=== PATIENT | male | born 1930 | race Caucasian/White ===

== ENCOUNTER 2017-01-06 10:24 | Inpatient (IN) ==
[2017-01-06] MEDS ORDERED: ASPIRIN 81 MG TAB.CHEW CHEWED ONE (10:45)
[2017-01-06] MEDS ORDERED: ASPIRIN 81 MG TAB.CHEW ONE (10:49)
[2017-01-06] MEDS ORDERED: IPRATROPIUM/ALBUTEROL 3 ML AMPUL.NEB NEB ONE (10:52)
[2017-01-06] MEDS ORDERED: CAPTOPRIL 25 MG TABLET PO ONE (10:55)
[2017-01-06] MEDS ORDERED: MAGNESIUM SULFATE 2 GM/50 ML BAG IV ONE (11:04)
[2017-01-06] MEDS ORDERED: methylPREDNISolone SOD SUCC 125 MG/2 ML VIAL IV ONE (11:04)
[2017-01-06] MEDS ORDERED: FUROSEMIDE 40 MG/4 ML VIAL IV ONE (11:04)
[2017-01-06] MEDS ORDERED: ALBUTEROL SULFATE 5 MG/ML NEB SOLUTION BOTTLE NEB ONE (11:06)
[2017-01-06 11:15] LABS: Basophils # (Auto) 0 K/mcL (0.0-0.3); Basophils % (Auto) 0.5 % (0.0-2.0); Eosinophils # (Auto) 0.2 K/mcL (0.0-0.7); Eosinophils % (Auto) 3.6 % (0.0-7.0); Granulocytes % (Auto) 57.5 % (38.0-78.0); Lymphocytes # (Auto) 1.6 K/mcL (1.5-4.8); Lymphocytes % (Auto) 30.1 % (15.5-49.0); Mean Corpuscular HGB Conc 34.7 g/dL (31.0-36.0); Mean Corpuscular Hemoglobin 29.9 pg (26.0-34.0); Monocytes # (Auto) 0.5 K/mcL (0.1-0.9); Monocytes % (Auto) 8.3 % (1.0-12.0); Platelet Count 264 K/mcL (140-440); Red Cell Distribution Width 13.9 % (11.5-14.5)
--- NOTE | 2017-01-06 11:38 | XRay Report ---
CLINICAL INFORMATION: Chest pain COMPARISON: 12/02/[address] from 07/30/2016 FINDINGS: Marked cardiomegaly is unchanged. Dual-chamber pacemaker leads in stable satisfactory position. Mediastinum and pulmonary vessels are normal. Marked chronic elevation right diaphragm with compressive atelectasis in the underlying right middle and lower lobes seen - as before. Small right pleural effusion with loculated fluid trapped in the superior right major fissure demonstrates long-term stability. The left lung is well expanded and clear IMPRESSION: Marked chronic elevation right diaphragm with atelectasis in the overlying right and middle lower lobes. Small right pleural effusion with loculated fluid trapped in the major fissure - stable Interpreted and Authenticated by: Daniel Selby 01/06/17
[2017-01-06 11:39] LABS: ALT/SGPT 13 U/l (0-40); Albumin 4.2 gm/dL (3.2-5.2); Albumin/Globulin Ratio 1.4 (1.0-2.3); Alkaline Phosphatase 81 U/L (39-117); Blood Urea Nitrogen 22 mg/dl (8-23); Creatine Kinase 148 IU/L (24-195); Creatine Kinase MB 3.2 ng/ml (0-4.9); Myoglobin 168 ng/ml (28-72)
--- NOTE | 2017-01-06 12:41 | Emergency Department Note ---
General Adult HPI - General Chief complaint: Blood Pressure Problem Stated complaint: SOB, Dizzy, high BP this morning Time Seen by Provider: 01/06/17 10:47 Source: patient Mode of arrival: ambulatory Limitations: no limitations - History of Present Illness HPI Narrative: 86-year-old male who complains of dizziness and discoordination, increased blood pressure and shortness of breath this morning. He did have some chest pressure on and off again but no true chest pain. No fever chills nausea vomiting diarrhea.. He did use a single DuoNeb at home earlier today without significant effect. He is not on home oxygen but does have a history of COPD as well as a chronic small right pleural effusion - Related Data Home Medications Medication Instructions Recorded Confirmed Metoprolol Succinate [Toprol Xl] 25 mg PO DAILY 02/05/15 10/17/15 Ondansetron [Zofran Odt] 4 mg PO Q6HP PRN 08/05/15 10/17/15 PARoxetine [Paxil] 20 mg PO DAILY 08/05/15 10/17/15 Furosemide [Lasix] 60 mg PO DAILY 10/17/15 10/17/15 Potassium Chloride [Klor-Con M10] 10 meq PO DAILY 10/17/15 10/17/15 Warfarin [Coumadin] 5 mg PO DAILY 08/13/16 08/13/16 Previous Rx's Medication Instructions Recorded Aspirin [Ecotrin] 325 mg PO DAILY #30 tab.ec 10/21/15 Atorvastatin [Lipitor] 40 mg PO HS #30 tablet 10/21/15 Docusate Sodium [Colace] 100 mg PO BID #0 capsule 10/21/15 Doxycycline Hyclate 200 mg PO DAILY #10 tablet. 05/21/16 Albuterol Sulfate [Ventolin] 2 puff INH Q4-6HP PRN #1 inhaler 08/13/16 Azithromycin [Zithromax] 250 mg PO DAILY #4 tablet 08/13/16 Doxycycline Hyclate [Vibramycin] 100 mg PO BID #20 capsule 12/02/16 Allergies Allergy/AdvReac Type Severity Reaction Status Date / Time Penicillins AdvReac Severe ANAPHYLAXIS Verified 12/02/16 10:46 morphine [MORPHINE] AdvReac Intermediate "BEEN Verified 12/02/16 10:46 ADDICTED 2X" Review of Systems All systems ED: reviewed and negative except as stated. Past Medical History - Past Medical History Attestation: Yes: The following information was validated with the patient. Medical history: Reports: arthritis, atrial fibrillation (On warfarin), cancer, COPD, CVA, glaucoma, hyperlipidemia, hypertension, kidney stones, TIA Surgical history ED: Reports: appendectomy, cataract, cholecystectomy, herniorrhaphy, knee replacement, orthopedic, other (lt shoulder 09/15/14 for failed replacement), pacemaker/AICD Psychiatric history: Reports: anxiety, depression, PTSD, prior suicide attempt - Social History smoking status: Former smoker Alcohol use: Reports: None (Former) Drug use: Reports: unknown Physical Exam Mild respiratory distress. Normocephalic atraumatic but face is flushed after breathing treatment. Conjunctive are clear sclerae white and nonicteric. No nasal discharge or congestion. Oropharynx is pink and moist. Neck is supple without lymphadenopathy or thyromegaly. I do not hear carotid bruit. Lungs are mostly clear to auscultation bilaterally but he does have significant end expiratory wheeze and tight cough with inspiration. Excursion is symmetrical. Abdomen soft nontender nondistended. No peritoneal signs or guarding. +1 pedal edema to mid calf. +2 radial pulse. No dysarthria ataxia, is alert oriented able answer questions appropriately and give me a good history and review of systems. - General Limitations: no limitations Course Vital Signs Temperature 98.3 F 01/06/17 10:26 Pulse Rate 66 01/06/17 10:26 Respiratory Rate 24 H 01/06/17 10:26 Blood Pressure 178/84 01/06/17 10:26 Pulse Oximetry (%) 93 01/06/17 10:26 Temperature 98.3 F 01/06/17 10:26 Pulse Rate 72 01/06/17 11:47 Respiratory Rate 23 H 01/06/17 11:47 Blood Pressure 140/80 01/06/17 11:47 Pulse Oximetry (%) 92 01/06/17 11:47 Medical Decision Making - Lab Data Lab results reviewed: Yes I reviewed the patient's lab results. Result diagrams: 01/06/17 10:51 01/06/17 10:51 Lab Results 01/06/17 01/06/17 01/06/17 Range/Units 10:45 10:51 10:51 WBC 5.5 (4.5-11.0) K/mcL RBC 4.40 L (4.50-5.90) M/mcL Hgb 13.2 L (13.5-16.5) g/dL Hct 37.9 L (41.0-55.0) % MCV 86.0 (80.0-100.0) fL MCH 29.9 (26.0-34.0) pg MCHC 34.7 (31.0-36.0) g/dL RDW 13.9 (11.5-14.5) % Plt Count 264 (140-440) K/mcL MPV 7.1 L (7.4-10.4) fL Gran % 57.5 (38.0-78.0) % Lymph % (Auto) 30.1 (15.5-49.0) % Toole % (Auto) 8.3 (1.0-12.0) % Eos % (Auto) 3.6 (0.0-7.0) % Baso % (Auto) 0.5 (0.0-2.0) % Gran # 3.1 (1.8-8.0) K/mcL Lymph # 1.6 (1.5-4.8) K/mcL Toole # 0.5 (0.1-0.9) K/mcL Eos # 0.2 (0.0-0.7) K/mcL Baso # 0 (0.0-0.3) K/mcL PT 30.5 H (11.9-14.5) sec INR 2.8 H (0.9-1.1) VBG Lactic Acid (0.5-2.2) mmol/L Sodium 141 (133-145) mmol/L Potassium 4.5 (3.3-5.1) mmol/L Chloride 106 (96-108) mmol/L Carbon Dioxide 21 L (22-30) mmol/L Anion Gap 14.0 (8-16) BUN 22 (8-23) mg/dl Creatinine 1.8 H (0.7-1.2) mg/dl GFR Calculation 33 Glucose 91 (70-105) mg/dL Calcium 9.2 (8.6-10.4) mg/dl Total Bilirubin 0.5 (0.0-1.0) mg/dL AST 16 (0-37) U/l ALT 13 (0-40) U/l Alkaline Phosphatase 81 (39-117) U/L Total Creatine Kinase 148 (24-195) IU/L CK-MB (CK-2) 3.2 (0-4.9) ng/ml Myoglobin 168 H (28-72) ng/ml Troponin T (0-0.03) ng/ml Total Protein 7.1 (5.9-8.4) gm/dL Albumin 4.2 (3.2-5.2) gm/dL Globulin 2.9 (2.2-3.7) gm/dL Albumin/Globulin Ratio 1.4 (1.0-2.3) 01/06/17 01/06/17 Range/Units 10:51 11:12 WBC (4.5-11.0) K/mcL RBC (4.50-5.90) M/mcL Hgb (13.5-16.5) g/dL Hct (41.0-55.0) % MCV (80.0-100.0) fL MCH (26.0-34.0) pg MCHC (31.0-36.0) g/dL RDW (11.5-14.5) % Plt Count (140-440) K/mcL MPV (7.4-10.4) fL Gran % (38.0-78.0) % Lymph % (Auto) (15.5-49.0) % Toole % (Auto) (1.0-12.0) % Eos % (Auto) (0.0-7.0) % Baso % (Auto) (0.0-2.0) % Gran # (1.8-8.0) K/mcL Lymph # (1.5-4.8) K/mcL Toole # (0.1-0.9) K/mcL Eos # (0.0-0.7) K/mcL Baso # (0.0-0.3) K/mcL PT (11.9-14.5) sec INR (0.9-1.1) VBG Lactic Acid 0.8 (0.5-2.2) mmol/L Sodium (133-145) mmol/L Potassium (3.3-5.1) mmol/L Chloride (96-108) mmol/L Carbon Dioxide (22-30) mmol/L Anion Gap (8-16) BUN (8-23) mg/dl Creatinine (0.7-1.2) mg/dl GFR Calculation Glucose (70-105) mg/dL Calcium (8.6-10.4) mg/dl Total Bilirubin (0.0-1.0) mg/dL AST (0-37) U/l ALT (0-40) U/l Alkaline Phosphatase (39-117) U/L Total Creatine Kinase (24-195) IU/L CK-MB (CK-2) (0-4.9) ng/ml Myoglobin (28-72) ng/ml Troponin T < 0.01 (0-0.03) ng/ml Total Protein (5.9-8.4) gm/dL Albumin (3.2-5.2) gm/dL Globulin (2.2-3.7) gm/dL Albumin/Globulin Ratio (1.0-2.3) Arterial blood gas shows pH 7.4 PCO2 of 40 PO2 of 80 and that is on 3 L nasal cannula - Radiology Data Radiology results reviewed: Yes I reviewed the patient's radiology results. Chest x-ray read by radiology shows no change with stable right pleural effusion and right hemidiaphragm elevation - EKG Data EKG #1 EKG attestation: Yes I reviewed and interpreted this EKG. EKG results narrative: EKG is paced at 70 bpm Disposition Clinical Impression: Hypertensive urgency, Hypoxia COPD (chronic obstructive pulmonary disease) Qualifiers: COPD type: COPD with acute exacerbation Qualified Code(s): J44.1 - Chronic obstructive pulmonary disease with (acute) exacerbation Summary: Suspect hypoxia with COPD exacerbation as cause for his lightheadedness chest pressure and shortness of breath. The initial DuoNeb treatment did help but subsequent 1 hour continuous nebulizer without significant effect. ABG shows compensation on 3 L-again he is not on home oxygen. Pressure is controlled with single dose of captopril. Discussed with Dr. Shankar, the hospitalist, as he cannot go home without oxygen and there is significant risk of decompensation-she agreed to accept the patient for hospital care Disposition: Xfer As Inpt ([facility]) Condition: Serious Referrals: Shameka Neumann ARNP [Primary Care Provider] - Niki Davalos MD [Physician] -
[2017-01-06] MEDS ORDERED: WARFARIN 5 MG TABLET PO ONE (14:00)
[2017-01-06] MEDS ORDERED: ACETAMINOPHEN 325 MG TABLET PO PRN (14:43)
[2017-01-06] MEDS ORDERED: ONDANSETRON 4 MG/2 ML VIAL IV PRN (14:43)
[2017-01-06] MEDS ORDERED: methylPREDNISolone SOD SUCC 125 MG/2 ML VIAL IV SCH (14:43)
[2017-01-06] MEDS ORDERED: ALBUTEROL SULFATE 2.5 MG/3 ML NEBULIZER NEB PRN (14:43)
--- NOTE | 2017-01-06 14:49 | Internal Med History&Physical ---
Medical - H&P: HPI Patient information: Note initiated : 01/06/17 at 2:46 pm Service Date, if different from initiated Date: [] Patient: Mikey Harmon a 86 y/o M admitted on 01/06/17 for SOB, Dizzy, High BP This Morning. Chief Complaint: [] History of present illness: Mr. Harmon is an 86 year old male who presents with increased shortness of breath. This 86-year-old man reports that he's had numerous episodes of pneumonia over the last 2 years, ever since he fell and caused a diaphragm injury. e says he was feeling relatively well the last few days, and then when he awakened this morning, noticed he was quite significantly short of breath. He believes he had dyspnea both with lying down as well as with exertion. He also felt quite dizzy today. He has some degree of chronic dizziness, presumably from previous strokes, but said it seemed quite a bit worse today. He says he has a chronic cough, and he is not sure if this is any worse today. He believes his cough is nonproductive. he otherwise denies fever or chills, headaches, new ear or eye symptoms sore throat. He also reports that he has been having left-sided chest discomfort on and off all day. He believes it was nonradiating but is associated with his shortness of breath, at least intermittently. he denies palpitations, abdominal pain, nausea or vomiting, diarrhea or constipation. He has chronic bladder dysfunction and I believe incontinence, since a previous prostate surgery. towards the end of our interview, the patient stated "i'm going now", and when asked to clarify he said he was very dizzy. He then indicated that he was having left-sided chest pressure. The automobile travel club counselor at that time initially showed a rapid, regular tachycardia, with a heart rate of around 120. he patient was given sublingual nitroglycerin, and then5 mg of Lopressor IV. His symptoms eventually resolved. eKG showed probable sinus versus ectopic atrial tachycardia at a rate of 105, left bundle branch block Past medical history: Stroke-posterior cerebral artery Pneumonia Hyperlipidemia Atrial fibrillation chronic anticoagulation therapy Hypertension Anxiety DJD, chronic right shoulder pain Sinusitis previous prostate problems, prostate surgery, and now probably incontinence issues. medications: warfarin 5 mg daily Potassium chloride 10 mEq daily Paxil 20 mg daily (? pt unsure) Zofran 4 mg every 6 hours when necessary Metoprolol XL 25 mg daily Lasix 60 mg daily Colace 100 mg twice a day Lipitor 40 mg daily at bedtime Aspirin 325 mg daily Albuterol inhaler 2 puffs every 4-6 hours when necessary allergies: Morphine Penicillin family history:Leukemia, lymphoma, in siblings. deepak believes his mother with some type of cancer, and also had thyroid disease. His father of an unknown kind of cancer. His daughter has had lung cancer and some kind of cancer in her hip. social history:The patient is recently engaged to his friend, Dyan. He quit smoking 40 years ago. He previously smoked pipes and cigars on and off from age 15 until around age 59.. He quit drinking alcohol 25 years ago.he previously abused alcohol. He previously smoked marijuana, but does not do that anymore. 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 his ex- just recently , and apparently that was very stressful for him. Medical - H&P: Meds Home Medications Medication Instructions Recorded Confirmed Type Metoprolol Succinate [Toprol Xl] 25 mg PO DAILY 02/05/15 01/06/17 History Ondansetron [Zofran Odt] 4 mg PO Q6HP PRN 08/05/15 01/06/17 History PARoxetine [Paxil] 20 mg PO DAILY 08/05/15 01/06/17 History Furosemide [Lasix] 60 mg PO DAILY 10/17/15 01/06/17 History Potassium Chloride [Klor-Con M10] 10 meq PO DAILY 10/17/15 01/06/17 History Aspirin [Ecotrin] 325 mg PO DAILY #30 tab.ec 10/21/15 01/06/17 Rx Atorvastatin [Lipitor] 40 mg PO HS #30 tablet 10/21/15 01/06/17 Rx Docusate Sodium [Colace] 100 mg PO BID #0 capsule 10/21/15 01/06/17 Rx Albuterol Sulfate [Ventolin] 2 puff INH Q4-6HP PRN #1 inhaler 08/13/16 01/06/17 Rx Warfarin [Coumadin] 5 mg PO DAILY 08/13/16 01/06/17 History Allergies Allergy/AdvReac Type Severity Reaction Status Date / Time Penicillins AdvReac Severe ANAPHYLAXIS Verified 12/02/16 10:46 morphine [MORPHINE] AdvReac Intermediate "BEEN Verified 12/02/16 10:46 ADDICTED 2X" Medical - H&P: Exam - Constitutional Vitals: Temp Pulse Resp BP Pulse Ox 98.3 F 93 H 26 H 124/64 92 01/06/17 10:26 01/06/17 14:16 01/06/17 14:16 01/06/17 14:16 01/06/17 14:16 on exam, the patient is intermittently dyspneic but is able to speak in full sentences and lie nearly flat, during those periods. Head: Normocephalic, atraumatic.Eyes:PERRLA, EOMI, anicteric IOLs are in place. Conjunctivae appear normal.Ears: TMs and canals are clear. Pharynx:Patient has full upper and lower plates. Posterior pharynx appears normal.Neck: Is supple, without obvious lymphadenopathy, JVD, thyromegaly. There is a soft right carotid bruit noted. Cardiac exam: Shows a regular rhythm, which is mildly tachycardic. No murmurs, rubs, gallops are noted. Lungs: decreased breath sounds at the right base, with crackles noted above. No rhonchi or wheezes are noted. The patient does have some sensory muscle use, but again, this is only intermittent. when he gets short of breath, he starts to complain of feeling very hot, and then becomes quite tachypneic. abdomen: Is soft and nontender, without obvious masses. Bowel sounds are active. Extremities: Show just a trace edema of the lower legs. There is hyperpigmentation from previous rash, as well as some active psoriasis plaques. Dorsalis pedis and posterior tibial pulses are palpable. neurologic: This is not tested in detail. The patient is alert and oriented, calm and cooperative. Motor exam is grossly nonfocal. However, the patient is a bit forgetful, and answers to questions are a bit tangential. Medical - H&P: Reslt - Labs CBC & Chem 7: 01/06/17 10:51 01/06/17 10:51 Labs: January 06: CBC differential: Shows 3000 granulocytes, and is otherwise fairly normal. Pro time is 30, INR 2.8 Troponin is normal at less than 0.01 ABG on room air?: PH 7.40, CO2 40, PO2 80, bicarbonate 24, O2 saturation 96% chest x-ray:Chronic elevation of right diaphragm with atelectasis of the right and middle lower lobes Small right pleural effusion, with loculated fluid, stable. eKG #1: Shows normal sinus rhythm at a rate of about 70, first-degree AV block, left bundle branch block. EKG #2: Shows probable sinus tachycardia at a rate of 105, versus ectopic atrial tachycardia. Left bundle branch block. no significant change from the EKG done at 1029 this morning. December 14, 2016: Chest CT: Persistent right hemidiaphragm elevation. Relatively small right pleural effusion, loculated within the right major fissure. No significant change since July 2016. October 17, 2015: Echocardiogram: Mild concentric LVH with prominent septal dyssynergy and overall mild systolic dysfunction. Ejection fraction 45%. Mild left atrial enlargement. Medical - H&P: A/P (1) COPD with exacerbation Current visit: Yes Status: Acute (2) Atrial fibrillation Current visit: Yes Status: Chronic (3) CKD (chronic kidney disease) Current visit: Yes Status: Chronic (4) Hypertensive urgency Current visit: Yes Status: Acute (5) Ventricular tachyarrhythmia Current visit: Yes Status: Acute - Narrative A/P Narrative: #1. Pulmonary. -Patient presents with dyspnea, and mild hypoxia on room air. Signs and symptoms are most consistent with a COPD exacerbation but the patient is quite certain he does not have COPD.. He does not appear to have pneumonia at this time, although is certainly at high risk for that. Given his history of frequent recurrent pneumonia, we should probably treat him as such. (recent chest CT scan from last month did not show signs of emphysema) -Admitted for IV fluids, aggressive bronchodilator treatments, IV site and Medrol close monitoring. -Recheck chest x-ray in the a.m. after hydration. #2. Cardiac. -during her interview, the patient appeared to develop regular, wide-complex, tachycardia. This may have been a run of ventricular tachycardia, versus SVT or atrial tachycardia. He clearly had an increase in shortness of breath and dizziness during this period . The tachycardia had resolved by the time his blood pressure was rechecked, and that was not noted to have dropped much. His chest pain and tachycardia and shortness of breath all resolved after a dose of sublingual nitroglycerin and IV metoprolol. -Check follow-up enzymes to rule out acute SC . Check echocardiogram. -increased beta messi dose. Continue aspirin and Coumadin. patient's renal function would not likely tolerate an NARCISO inhibitor. continue atorvastatin. -BNP is mildly elevated chest x-ray is not really suggestiveof CHF. I expect there is some degree of cardiac strain going on, either resulting from, or contributing to, his dyspnea. -continue Lasix Monitor intake and output, and daily weights. -history of atrial fibrillation with controlled rate. Monitor on telemetry. -continue metoprolol. -hypertension: Blood pressure was quite high in the emergency room. He did receive 1 dose of captopril. -Continue Coumadin management, per pharmacy. -continue statin for hyperlipidemia. #3. Neurologic. 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 Continue Coumadin. #4. Psychiatric. -History of anxiety.previously treated with Paxil. the patient seems unsure if he is still taking this. We will try to verify this with his fiance. #5. Renal. History of CKD. Continue to monitor. 36. CODE STATUS: full code, although he says he would not want long-term life support. his daughter,Lynnette, our respiratory therapist, should be his POA, he says. 37. DVT prophylaxis:Subcutaneous heparin. so far today, this is his taken [id number] minutes to review his records, review his case with the ER M.D. interview and examine him, attending to him at the bedside for chest pain and dyspnea, and write orders.
[2017-01-06] MEDS ORDERED: POTASSIUM CHLORIDE 20 MEQ in 0.45 % SODIUM CHLORIDE 1,000 ML IV SCH (15:00)
[2017-01-06] MEDS ORDERED: ONDANSETRON ODT 4 MG TABLET SL PRN (15:07)
[2017-01-06] MEDS ORDERED: NITROGLYCERIN 0.4 MG TAB.SUBL SL ONE (15:35)
[2017-01-06] MEDS ORDERED: METOPROLOL TARTRATE 5 MG/5 ML VIAL IV ONE (15:40)
[2017-01-06] MEDS ORDERED: METOPROLOL TARTRATE 5 MG/5 ML VIAL IV PRN (16:29)
[2017-01-06] MEDS ORDERED: cefTRIAXone 1 GM in DEXTROSE 5% IN WATER 50 ML IV SCH (17:15)
[2017-01-06 18:47] LABS: Hemoglobin A1C 5.5 % HGB (4.0-6.0)
[2017-01-06] MEDS ORDERED: IPRATROPIUM/ALBUTEROL 3 ML AMPUL.NEB NEB SCH (19:00)
[2017-01-06] MEDS: DOCUSATE SODIUM 100 MG CAPSULE PO SCH (20:30)
[2017-01-06] MEDS: ATORVASTATIN 20 MG TABLET PO SCH ×2 (20:30→20:36)
[2017-01-06] MEDS: METOPROLOL SUCCINATE 25 MG TAB.XL.24H PO SCH (20:31)
[2017-01-07 05:50] LABS: Basophils # (Auto) 0 K/mcL (0.0-0.3); Basophils % (Auto) 0 % (0.0-2.0); Eosinophils # (Auto) 0 K/mcL (0.0-0.7); Eosinophils % (Auto) 0.1 % (0.0-7.0); Granulocytes % (Auto) 92.6 % (38.0-78.0); Lymphocytes # (Auto) 0.7 K/mcL (1.5-4.8); Lymphocytes % (Auto) 6.2 % (15.5-49.0); Mean Cell Volume 87.1 fL (80.0-100.0); Mean Corpuscular HGB Conc 34.3 g/dL (31.0-36.0); Mean Corpuscular Hemoglobin 29.9 pg (26.0-34.0); Monocytes # (Auto) 0.1 K/mcL (0.1-0.9); Monocytes % (Auto) 1.1 % (1.0-12.0); Platelet Count 242 K/mcL (140-440); Red Cell Distribution Width 13.8 % (11.5-14.5)
[2017-01-07 06:15] LABS: ALT/SGPT 12 U/l (0-40); Albumin 3.7 gm/dL (3.2-5.2); Albumin/Globulin Ratio 1.4 (1.0-2.3); Alkaline Phosphatase 67 U/L (39-117); Bilirubin,Direct < 0.2 mg/dL (0.0-0.3); Blood Urea Nitrogen 31 mg/dl (8-23); Gamma Glutamyl Transpeptidase 18 U/L (8-61); Magnesium 2.3 mg/dL (1.6-2.5); Uric Acid 8.4 mg/dL (2.5-8.0)
--- NOTE | 2017-01-07 08:34 | XRay Report ---
CLINICAL INFORMATION: Hypoxia exacerbation COPD COMPARISON: 12/02/2016 and 01/06/2017 FINDINGS: Mild cardiomegaly is unchanged. Pacemaker leads in stable satisfactory position. Mediastinum and pulmonary vessels are unremarkable. Marked chronic elevation right diaphragm with moderate right pleural effusion, predominantly loculated in the major fissure, has increased modestly. There is compressive atelectasis in the right middle and lower lobes previously seen. No change. IMPRESSION: 1. Marked chronic elevation right diaphragm with atelectasis in the overlying right middle and lower lobes - stable radiographically 2. Moderate right pleural effusion, predominantly loculated in the major fissure, increasing modestly since yesterday. Interpreted and Authenticated by: Daniel Selby 01/07/17
[2017-01-07] MEDS ORDERED: LEVOFLOXACIN 500 MG/100 ML BAG IV SCH (09:00)
[2017-01-07] MEDS ORDERED: METOPROLOL SUCCINATE 25 MG TAB.XL.24H PO SCH (09:00)
[2017-01-07] MEDS ORDERED: FUROSEMIDE 20 MG TABLET PO SCH (09:00)
[2017-01-07] MEDS ORDERED: ASPIRIN 325 MG ENTERIC COATED TABLET PO SCH (09:00)
[2017-01-07] MEDS: DOCUSATE SODIUM 100 MG CAPSULE PO SCH ×2 (09:34→20:39)
[2017-01-07] MEDS: PARoxetine 20 MG TABLET PO SCH (09:34)
[2017-01-07] MEDS: POTASSIUM CHLORIDE 10 MEQ TABLET PO SCH (09:37)
[2017-01-07] MEDS: METOPROLOL SUCCINATE 25 MG TAB.XL.24H PO SCH ×2 (09:37→20:39)
--- NOTE | 2017-01-07 09:39 | Internal Med Progress Note ---
Medical - PN: Subj Patient information: Note initiated : 01/07/17 at 9:39 am Patient: Mikey Harmon a 86 y/o M admitted on 01/06/17 for SOB, Dizzy, High BP This Morning. Interval history: January 06, 2017: History of present illness: Mr. Harmon is an 86 year old male who presents with increased shortness of breath. This 86-year-old man reports that he's had numerous episodes of pneumonia over the last 2 years, ever since he fell and caused a diaphragm injury. e says he was feeling relatively well the last few days, and then when he awakened this morning, noticed he was quite significantly short of breath. He believes he had dyspnea both with lying down as well as with exertion. He also felt quite dizzy today. He has some degree of chronic dizziness, presumably from previous strokes, but said it seemed quite a bit worse today. He says he has a chronic cough, and he is not sure if this is any worse today. He believes his cough is nonproductive. he otherwise denies fever or chills, headaches, new ear or eye symptoms sore throat. He also reports that he has been having left-sided chest discomfort on and off all day. He believes it was nonradiating but is associated with his shortness of breath, at least intermittently. he denies palpitations, abdominal pain, nausea or vomiting, diarrhea or constipation. He has chronic bladder dysfunction and I believe incontinence, since a previous prostate surgery. -towards the end of our interview, the patient stated "i'm going now", and when asked to clarify he said he was very dizzy. He then indicated that he was having left-sided chest pressure. The quality assurance monitor chassis at that time initially showed a rapid, regular tachycardia, with a heart rate of around 120. he patient was given sublingual nitroglycerin, and then5 mg of Lopressor IV. His symptoms eventually resolved. eKG showed probable sinus versus ectopic atrial tachycardia at a rate of 105, left bundle branch block. January 07: -the patient had a fairly quiet evening, although he reports one episode of dizziness. His breathing has been a little better, but he notes that when he took a shower this morning he got quite short of breath. O2 saturations have remained 90-94% on room air. He continues to deny much in the way of a cough. He denies fevers or chills. -he really was not wheezing either last night or today, to my exam. His daughter, who is a respiratory therapist, denies that he has any history of COPD History right were discontinued. -he says he still has chest discomfort on and off which is vague, and he cannot quite describe ow often it is coming and going. He has not had any more tachycardia arrhythmias or apparent V. tach. troponins were negative 3, and BNP was also normal. -atrial fibrillation now has a controlled rate. -INR continues in the therapeutic range. -blood pressures have been fine since admission. otherwise, he denies fever or chills, headaches, sore throat, palpitations, abdominal pain, nausea or vomiting, diarrhea or constipation, dysuria. He does have some chronic bladder incontinence issues - Constitutional Vitals: Vital Signs Temp Pulse Resp BP Pulse Ox 97.8 F 80 18 127/67 93 01/07/17 07:35 01/07/17 07:19 01/07/17 07:35 01/07/17 07:35 01/07/17 07:35 Period Temp Pulse Resp BP Sys/Fagan Pulse Ox Last 24 Hr 97.8 F-98.7 F 70-93 16-22 105-138/44-78 90-93 Intake and Output 01/06/17 01/07/17 01/07/17 21:59 05:59 13:59 Intake Total 481 / 481 360 / 360 360 / 360 Output Total 700 / 700 500 / 500 Balance -219 / -219 -140 / -140 360 / 360 Weight 219 lb 5.759 oz Intake & Output: Intake & Output 01/06/17 01/07/17 01/07/17 21:59 05:59 13:59 Intake Total 481 / 481 360 / 360 360 / 360 Output Total 700 / 700 500 / 500 Balance -219 / -219 -140 / -140 360 / 360 Weight 219 lb 5.759 oz Intake: IV 241 / 241 Potassium Chloride 20 Meq 241 / 241 In Sodium Chloride 0.45% 1,000 ml @ 75 mls/hr IV .[id number] [facility] Rx#: [id number] Oral 240 / 240 360 / 360 360 / 360 Output: Urine Catheter Amount 200 / 200 Void Amount 700 / 700 300 / 300 Other: Meal Dinner Percent of Meal Consumed 100% intake and output shows he is -649mL since admission. on exam,he is sitting up in a chair visiting with his family. He is in no acute distress, and seems in good spirits. Neck is supple without obvious JVD or lymphadenopathy. Cardiac exam shows an irregularly irregular rhythm, with controlled rate. No significant murmurs, rubs, gallops are noted. Lungs: Have a few crackles at the right base, but otherwise are quite clear, without wheezes or rhonchi. Abdomen is soft and nontender, bowel sounds are normoactive. Extremities: Show no cyanosis, clubbing, edema. Neurologic exam: Is grossly intact. Medical - PN: Obj Da - Labs CBC & Chem 7: 01/07/17 04:08 01/07/17 04:08 Labs: Abnormal Lab Results 01/07/17 01/07/17 01/07/17 04:08 04:08 04:08 RBC 4.00 L Hgb 11.9 L Hct 34.8 L Gran % 92.6 H Lymph % (Auto) 6.2 L Gran # 10.1 H Lymph # 0.7 L PT 35.8 H INR 3.4 H Carbon Dioxide 19 L BUN 31 H Creatinine 2.1 H Glucose 146 H Uric Acid 8.4 H Phosphorus 2.4 L january 07: Chest x-ray shows markedly chronic elevation of the right diaphragm with atelectasis in the right middle and lower lobes stable. Moderate right pleural effusion loculated in the major fissure, increasing modestly since yesterday. echocardiogram: Results pending. January 06: Nasal MRSA screen is negative. CBC differential: Shows 3000 granulocytes, and is otherwise fairly normal. Pro time is 30, INR 2.8 Troponin is normal at less than 0.01 ABG on room air?: PH 7.40, CO2 40, PO2 80, bicarbonate 24, O2 saturation 96% chest x-ray:Chronic elevation of right diaphragm with atelectasis of the right and middle lower lobes Small right pleural effusion, with loculated fluid, stable. eKG #1: Shows normal sinus rhythm at a rate of about 70, first-degree AV block, left bundle branch block. EKG #2: Shows probable sinus tachycardia at a rate of 105, versus ectopic atrial tachycardia. Left bundle branch block. no significant change from the EKG done at 1029 this morning. December 14, 2016: Chest CT: Persistent right hemidiaphragm elevation. Relatively small right pleural effusion, loculated within the right major fissure. No significant change since July 2016. October 17, 2015: Echocardiogram: Mild concentric LVH with prominent septal dyssynergy and overall mild systolic dysfunction. Ejection fraction 45%. Mild left atrial enlargement. Meds: Medications Acetaminophen (Tylenol) 650 mg PO Q6HP PRN PRN Reason: PAIN/FEVER > 101 Albuterol Sulfate (Ventolin) 2.5 mg NEB Q4HRT PRN PRN Reason: Shortness Of Breath Or Wheezing Last Admin: 01/07/17 07:19 Dose: 2.5 mg Aspirin (Ecotrin) 81 mg PO DAILY [facility] Last Admin: 01/07/17 09:35 Dose: 81 mg Atorvastatin Calcium (Lipitor) 40 mg PO HS [facility] Last Admin: 01/06/17 20:36 Dose: Not Given Docusate Sodium (Colace) 100 mg PO BID [facility] Last Admin: 01/07/17 09:34 Dose: 100 mg Levofloxacin (Levaquin) 500 mg in 100 mls @ 100 mls/hr IV TODAY@0900 [facility] Stop: 01/07/17 09:59 Last Admin: 01/07/17 09:34 Dose: 100 mls/hr Levofloxacin (Levaquin) 250 mg in 50 mls @ 50 mls/hr IV Q24H [facility] Metoprolol Succinate (Toprol Xl) 25 mg PO BID [facility] Last Admin: 01/07/17 09:37 Dose: 25 mg Metoprolol Tartrate (Lopressor) 5 mg IV Q4HP PRN PRN Reason: Tachyarrhythmias Ondansetron HCl (Zofran) 4 mg IV Q4HP PRN PRN Reason: Nausea And Vomiting Ondansetron HCl (Zofran Odt) 4 mg SL Q6HP PRN PRN Reason: Nausea And Vomiting Paroxetine HCl (Paxil) 20 mg PO DAILY [facility] Last Admin: 01/07/17 09:34 Dose: 20 mg Potassium Chloride (Kdur) 10 meq PO [facility] Last Admin: 01/07/17 09:37 Dose: 10 meq Warfarin Sodium (Coumadin Per Pharmacy) 1 order PO [facility] Medical - PN: A/P - Time Spent With Patient Total time spent is greater than 50% in coordination of care (as documented) at patient's floor/unit and/or counseling patient: Greater than 35 minutes (1) Atrial fibrillation Status: Chronic Current Visit: Yes (2) CKD (chronic kidney disease) Status: Chronic Current Visit: Yes (3) Hypertensive urgency Status: Acute Current Visit: Yes (4) Ventricular tachyarrhythmia Status: Acute Current Visit: Yes - Narrative A/P Narrative: #1. Pulmonary. -Patient presents with dyspnea, and mild hypoxia on room air. -initially this was thought to be a COPD exacerbation, but his daughter confirms that he has no history of COPD. he does have a chronic pleural effusion related to chronic hemidiaphragm elevation and right lower and right middle lobe atelectasis. steroids and ipratropium nebulizer treatments were discontinued. (recent chest CT scan from last month did not show signs of emphysema) -chest x-ray does not show evidence of CHF, and BNP is negative. There still is no definite infiltrate on x-ray, but I suspect his moderate hypoxia on room air is related to both compression atelectasis of his right lung lobes and possible early recurrent, pneumonia. -I will go ahead and treat him empirically with Levaquin for now, to see if this seems to improve things. his white blood cell count. Bump up a bit today , and also his absolute granulocyte count is now bit elevated. -I discussed with the patient and his family that if he does not respond to treatment for pneumonia, we might go ahead and do a chest CT angiogram, or VQ scan, to rule out PE. I discussed with them though this would not be expected, given that he is therapeutic on his Coumadin. His renal function might not tolerate IV dye, so we would probably need to do a VQ scan, or contact nephrology to help us manage that. #2. Cardiac. -during the interview, the patient appeared to develop regular, wide-complex, tachycardia. This may have been a run of ventricular tachycardia, versus SVT or atrial tachycardia. His chest pain and tachycardia and shortness of breath all resolved after a dose of sublingual nitroglycerin and IV metoprolol. -follow-up troponins were negative for acute VT. BNP remains normal. Echocardiogram results are pending from this morning. -increased beta messi dose. Continue aspirin and Coumadin. patient's renal function would not likely tolerate an NARCISO inhibitor. continue atorvastatin. -history of atrial fibrillation with controlled rate. Ray has been well- controlled since last night. -continue metoprolol. -hypertension: Blood pressure was quite high in the emergency room. He did receive 1 dose of captopril.blood pressures have been finesince he received IV Lopressor last night. -Continue Coumadin management, per pharmacy. -continue statin for hyperlipidemia. #3. Neurologic. 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 Continue Coumadin. #4. Psychiatric. -History of anxiety.previously treated with Paxil. #5. Renal. History of CKD. Continue to monitor. 36. CODE STATUS: full code, although he says he would not want long-term life support. his daughter,Lynnette, our respiratory therapist, should be his POA, he says. I was able to review this with the patient and with his daughter, Lynnette, today. They will work on getting something in writing to clarify his wishes. 37. DVT prophylaxis:Subcutaneous heparin. #8. Renal. The patient did bump his creatinine today. I suspect this is due to a combination of mild dehydration after receiving Lasix in the emergency room, and also receiving captopril in the emergency room. -i will give [id number] mL of fluids today. -Recheck labs in a.m. -phosphorus level is a bit low continue to monitor. approximately 40 minutes has been spent so far today, reviewing patient's test results, interviewing and examining the patient, reviewing plan of carewith him as well as with his family and also with staff and writing orders.. Medical - PN: Qual - VTE Deep Vein Thrombosis/Pulmonary Embolism Present on Admission: No
[2017-01-07] MEDS ORDERED: 0.45 % SODIUM CHLORIDE 1,000 ML IV SCH (11:30)
[2017-01-07] MEDS: ATORVASTATIN 20 MG TABLET PO SCH (20:39)
[2017-01-08 05:33] LABS: Basophils # (Auto) 0 K/mcL (0.0-0.3); Basophils % (Auto) 0.4 % (0.0-2.0); Eosinophils # (Auto) 0.1 K/mcL (0.0-0.7); Eosinophils % (Auto) 1.5 % (0.0-7.0); Granulocytes % (Auto) 76.2 % (38.0-78.0); Lymphocytes # (Auto) 1.5 K/mcL (1.5-4.8); Lymphocytes % (Auto) 15.8 % (15.5-49.0); Mean Corpuscular HGB Conc 34.3 g/dL (31.0-36.0); Mean Corpuscular Hemoglobin 30.2 pg (26.0-34.0); Monocytes # (Auto) 0.6 K/mcL (0.1-0.9); Monocytes % (Auto) 6.1 % (1.0-12.0); Platelet Count 251 K/mcL (140-440); RBC 4.08 M/mcL (4.50-5.90); Red Cell Distribution Width 14.1 % (11.5-14.5)
[2017-01-08 05:45] LABS: ALT/SGPT 12 U/l (0-40); Albumin 3.5 gm/dL (3.2-5.2); Albumin/Globulin Ratio 1.3 (1.0-2.3); Alkaline Phosphatase 73 U/L (39-117); Bilirubin,Direct < 0.2 mg/dL (0.0-0.3); Blood Urea Nitrogen 38 mg/dl (8-23); Gamma Glutamyl Transpeptidase 19 U/L (8-61); Magnesium 2.3 mg/dL (1.6-2.5); Uric Acid 7.9 mg/dL (2.5-8.0)
[2017-01-08] MEDS: METOPROLOL SUCCINATE 25 MG TAB.XL.24H PO SCH ×2 (08:23→21:38)
[2017-01-08] MEDS: POTASSIUM CHLORIDE 10 MEQ TABLET PO SCH (08:24)
[2017-01-08] MEDS: PARoxetine 20 MG TABLET PO SCH (08:24)
[2017-01-08] MEDS: DOCUSATE SODIUM 100 MG CAPSULE PO SCH ×2 (08:24→21:38)
[2017-01-08] MEDS: ASPIRIN 81 MG TAB.CHEW PO SCH (08:56)
[2017-01-08] MEDS: LEVOFLOXACIN 250 MG/50 ML BAG IV SCH (08:59)
[2017-01-08] MEDS ORDERED: WARFARIN 2.5 MG TABLET PO ONE (14:00)
--- NOTE | 2017-01-08 15:29 | Internal Med Progress Note ---
Medical - PN: Subj Patient information: Note initiated : 01/08/17 at 3:25 pm Patient: Mikey Harmon a 86 y/o M admitted on 01/06/17 for SOB, Dizzy, High BP This AM/COPD w/ Exacerbation. Interval history: January 06, 2017: History of present illness: Mr. Harmon is an 86 year old male who presents with increased shortness of breath. This 86-year-old man reports that he's had numerous episodes of pneumonia over the last 2 years, ever since he fell and caused a diaphragm injury. e says he was feeling relatively well the last few days, and then when he awakened this morning, noticed he was quite significantly short of breath. He believes he had dyspnea both with lying down as well as with exertion. He also felt quite dizzy today. He has some degree of chronic dizziness, presumably from previous strokes, but said it seemed quite a bit worse today. He says he has a chronic cough, and he is not sure if this is any worse today. He believes his cough is nonproductive. he otherwise denies fever or chills, headaches, new ear or eye symptoms sore throat. He also reports that he has been having left-sided chest discomfort on and off all day. He believes it was nonradiating but is associated with his shortness of breath, at least intermittently. he denies palpitations, abdominal pain, nausea or vomiting, diarrhea or constipation. He has chronic bladder dysfunction and I believe incontinence, since a previous prostate surgery. -towards the end of our interview, the patient stated "i'm going now", and when asked to clarify he said he was very dizzy. He then indicated that he was having left-sided chest pressure. The business process analyst at that time initially showed a rapid, regular tachycardia, with a heart rate of around 120. he patient was given sublingual nitroglycerin, and then5 mg of Lopressor IV. His symptoms eventually resolved. eKG showed probable sinus versus ectopic atrial tachycardia at a rate of 105, left bundle branch block. January 07: -the patient had a fairly quiet evening, although he reports one episode of dizziness. His breathing has been a little better, but he notes that when he took a shower this morning he got quite short of breath. O2 saturations have remained 90-94% on room air. He continues to deny much in the way of a cough. He denies fevers or chills. -he really was not wheezing either last night or today, to my exam. His daughter, who is a respiratory therapist, denies that he has any history of COPD History right were discontinued. -he says he still has chest discomfort on and off which is vague, and he cannot quite describe ow often it is coming and going. He has not had any more tachycardia arrhythmias or apparent V. tach. troponins were negative 3, and BNP was also normal. -atrial fibrillation now has a controlled rate. -INR continues in the therapeutic range. -blood pressures have been fine since admission. otherwise, he denies fever or chills, headaches, sore throat, palpitations, abdominal pain, nausea or vomiting, diarrhea or constipation, dysuria. He does have some chronic bladder incontinence issues January 08: the patient has done well overnight. HisO2 saturations at rest on room air,are fine. He still tends to feel quite dyspneic with exertion. He was able to walk in the hallway today, with physical therapy. He does become a little tachycardic, and his O2 saturation drops to about 89%, with exertion, on room air, but he does recover quickly. He feels he is quite a bit improved compared to admission. His daughter notes that he is generally fairly active at home,but is also impulsive, and does not always or take care, when he should. he tells me he has been unable to walk very long distances for a while, due to some mild dyspnea with exertion. - Constitutional Vitals: Vital Signs Temp Pulse Resp BP Pulse Ox 97.9 F 71 20 139/90 98 01/08/17 12:00 01/07/17 20:00 01/08/17 12:00 01/08/17 12:00 01/08/17 12:00 Period Temp Pulse Resp BP Sys/Fagan Pulse Ox Last 24 Hr 97.7 F-98.1 F 70-72 16-20 126-147/67-90 92-98 Intake and Output 01/08/17 01/08/17 01/08/17 05:59 13:59 21:59 Intake Total 510 / 510 100 / 100 Output Total 1650 / 1650 600 / 600 Balance -1140 / -1140 -500 / -500 Intake & Output: Intake & Output 01/08/17 01/08/17 01/08/17 05:59 13:59 21:59 Intake Total 510 / 510 100 / 100 Output Total 1650 / 1650 600 / 600 Balance -1140 / -1140 -500 / -500 Intake: IV 510 / 510 Sodium Chloride 0.45% 1, 510 / 510 000 ml @ 84 mls/hr IV . [id number] [facility] Rx#:[id number] Oral 100 / 100 Output: Void Amount 1650 / 1650 600 / 600 Other: Meal Lunch Percent of Meal Consumed 100% Feeding Ability Independent # Voids 1 the patient is sitting up in a chair, in no acute distress.Neck is supple without obvious JVD. Cardiac exam shows a regular rhythm, and on telemetry, is paced. Lungs:He has some decreased breath sounds at the right base, but otherwise lungs are clear, without rales or rhonchi or wheezes. Abdomen is soft and nontender. Extremities: Show no significant edema. Neurologic exam: Is grossly nonfocal. Medical - PN: Obj Da - Labs CBC & Chem 7: 01/08/17 03:51 01/08/17 03:51 Labs: Abnormal Lab Results 01/08/17 01/08/17 01/08/17 03:51 03:51 03:51 RBC 4.08 L Hgb 12.3 L Hct 35.9 L MPV 7.3 L Gran % Lymph % (Auto) Gran # Lymph # PT 30.6 H INR 2.8 H Carbon Dioxide BUN 38 H Creatinine 1.9 H Glucose Uric Acid Phosphorus 2.6 L 01/07/17 01/07/17 01/07/17 04:08 04:08 04:08 RBC 4.00 L Hgb 11.9 L Hct 34.8 L MPV Gran % 92.6 H Lymph % (Auto) 6.2 L Gran # 10.1 H Lymph # 0.7 L PT 35.8 H INR 3.4 H Carbon Dioxide 19 L BUN 31 H Creatinine 2.1 H Glucose 146 H Uric Acid 8.4 H Phosphorus 2.4 L january 07: Chest x-ray shows markedly chronic elevation of the right diaphragm with atelectasis in the right middle and lower lobes stable. Moderate right pleural effusion loculated in the major fissure, increasing modestly since yesterday. echocardiogram: Results pending. January 06: Nasal MRSA screen is negative. CBC differential: Shows 3000 granulocytes, and is otherwise fairly normal. Pro time is 30, INR 2.8 Troponin is normal at less than 0.01 ABG on room air?: PH 7.40, CO2 40, PO2 80, bicarbonate 24, O2 saturation 96% chest x-ray:Chronic elevation of right diaphragm with atelectasis of the right and middle lower lobes Small right pleural effusion, with loculated fluid, stable. eKG #1: Shows normal sinus rhythm at a rate of about 70, first-degree AV block, left bundle branch block. EKG #2: Shows probable sinus tachycardia at a rate of 105, versus ectopic atrial tachycardia. Left bundle branch block. no significant change from the EKG done at 1029 this morning. December 14, 2016: Chest CT: Persistent right hemidiaphragm elevation. Relatively small right pleural effusion, loculated within the right major fissure. No significant change since July 2016. October 17, 2015: Echocardiogram: Mild concentric LVH with prominent septal dyssynergy and overall mild systolic dysfunction. Ejection fraction 45%. Mild left atrial enlargement. Meds: Medications Acetaminophen (Tylenol) 650 mg PO Q6HP PRN PRN Reason: PAIN/FEVER > 101 Albuterol Sulfate (Ventolin) 2.5 mg NEB Q4HRT PRN PRN Reason: Shortness Of Breath Or Wheezing Last Admin: 01/07/17 07:19 Dose: 2.5 mg Aspirin (Aspirin) 81 mg PO DAILY [facility] Last Admin: 01/08/17 08:56 Dose: 81 mg Atorvastatin Calcium (Lipitor) 40 mg PO HS [facility] Last Admin: 01/07/17 20:39 Dose: Not Given Docusate Sodium (Colace) 100 mg PO BID [facility] Last Admin: 01/08/17 08:24 Dose: Not Given Levofloxacin (Levaquin) 250 mg in 50 mls @ 50 mls/hr IV Q24H [facility] Last Admin: 01/08/17 08:59 Dose: 50 mls/hr Metoprolol Succinate (Toprol Xl) 25 mg PO BID [facility] Last Admin: 01/08/17 08:23 Dose: 25 mg Metoprolol Tartrate (Lopressor) 5 mg IV Q4HP PRN PRN Reason: Tachyarrhythmias Ondansetron HCl (Zofran) 4 mg IV Q4HP PRN PRN Reason: Nausea And Vomiting Ondansetron HCl (Zofran Odt) 4 mg SL Q6HP PRN PRN Reason: Nausea And Vomiting Paroxetine HCl (Paxil) 20 mg PO DAILY [facility] Last Admin: 01/08/17 08:24 Dose: 20 mg Potassium Chloride (Kdur) 10 meq PO QAMCC [facility] Last Admin: 01/08/17 08:24 Dose: 10 meq Warfarin Sodium (Coumadin Per Pharmacy) 1 order PO UD [facility] Medical - PN: A/P - Time Spent With Patient Total time spent is greater than 50% in coordination of care (as documented) at patient's floor/unit and/or counseling patient: 25 - 35 minutes (1) Atrial fibrillation Status: Chronic Current Visit: Yes (2) CKD (chronic kidney disease) Status: Chronic Current Visit: Yes (3) Hypertensive urgency Status: Acute Current Visit: Yes (4) Ventricular tachyarrhythmia Status: Acute Current Visit: Yes - Narrative A/P Narrative: #1. Pulmonary. -Patient presents with dyspnea, and mild hypoxia on room air. -initially this was thought to be a COPD exacerbation, but his daughter confirms that he has no history of COPD. he does have a chronic pleural effusion related to chronic hemidiaphragm elevation and right lower and right middle lobe atelectasis. steroids and ipratropium nebulizer treatments were discontinued. (recent chest CT scan from last month did not show signs of emphysema) -chest x-ray does not show evidence of CHF, and BNP is negative. There still is no definite infiltrate on x-ray, but I suspect his moderate hypoxia on room air is related to both compression atelectasis of his right lung lobes and possible early recurrent, pneumonia. -I will go ahead and treat him empirically with Levaquin for now, to see if this seems to improve things. his white blood cell count. Bump up a bit today , and also his absolute granulocyte count is now bit elevated. -I discussed with the patient and his family that if he does not respond to treatment for pneumonia, we might go ahead and do a chest CT angiogram, or VQ scan, to rule out PE. I discussed with them though this would not be expected, given that he is therapeutic on his Coumadin. His renal function might not tolerate IV dye, so we would probably need to do a VQ scan, or contact nephrology to help us manage that. -overall, he is gradually improving. O2 saturations are reasonable on room air. he is nearing the time when he would be ready for discharge, but physical therapy does note that he is impulsive and unsteady and is still at significant fall risk. Continue physical therapy for now. It is not clear if he will accept physical therapy as an outpatient. #2. Cardiac. -during the admission interview, the patient appeared to develop regular, wide- complex, tachycardia. This may have been a run of ventricular tachycardia, versus SVT or atrial tachycardia. His chest pain and tachycardia and shortness of breath all resolved after a dose of sublingual nitroglycerin and IV metoprolol. -follow-up troponins were negative for acute CO. BNP remains normal. Echocardiogram results are pending still. -increased beta messi dose. Continue aspirin and Coumadin. patient's renal function would not likely tolerate an NARCISO inhibitor. continue atorvastatin. -history of atrial fibrillation with controlled rate. rate has been well- controlled since last night. -continue metoprolol. -hypertension: Blood pressure was quite high in the emergency room. blood pressures are back to normal. -Continue Coumadin management, per pharmacy. INR is therapeutic. -continue statin for hyperlipidemia. #3. Neurologic. 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 Continue Coumadin. #4. Psychiatric. -History of anxiety.previously treated with Paxil. #5. Renal. History of CKD. Continue to monitor. BUN bumped a little today, for uncertain reasons. Creatinine is stable. -phosphorus level is a bit low continue to monitor. 36. CODE STATUS: full code, although he says he would not want long-term life support. his daughter,Lynnette, our respiratory therapist, should be his POA, he says. I was able to review this with the patient and with his daughter, Lynnette, today. They will work on getting something in writing to clarify his wishes. 37. DVT prophylaxis:Subcutaneous heparin. #8. Renal. The patient did bump his creatinine today. I suspect this is due to a combination of mild dehydration after receiving Lasix in the emergency room, and also receiving captopril in the emergency room. -i will give [id number] mL of fluids today. -Recheck labs in a.m. -phosphorus level is a bit low continue to monitor. approximately 30 minutes has been spent so far today, reviewing patient's test results, interviewing and examining the patient, reviewing plan of carewith him as well as with his daughter and also with staff ,and writing orders.. addendum: I was called to see the patient around 6 PM, as he was complaining of a sharp stabbing pain in his left chest, below the nipple area. When I arrived, it had resolved. He said it felt like someone was sticking a knife in his chest. It lasted only about 30 seconds. It was nonradiating. It did not seem to cause dizziness shortness of breath, diaphoresis. Vital signs were stable, and his heart rate was paced at 70. He did not appear to be in any acute distress at the time of my exam. Neck is supple without obvious JVD. Cardiac exam showed regular rate and rhythm. Lung exam showed decreased breath sounds and a few crackles at the right base, as before, and otherwise were clear. Abdomen was soft and nontender. Extremities show no significant edema. Neurologic exam was grossly nonfocal. EKG; Showed a paced rhythm at 70, with a left bundle branch block. chest x-ray showed elevated right hemidiaphragm as before, and otherwise no change. INR is still in therapeutic range today. A/P: Fleeting chest pain, of uncertain etiology. there is no clear evidence of cardiac ischemia or obvious pulmonary cause. He should be low risk for PE because his INR is in the therapeutic range. EKG did not suggest pericarditis It is possible this was a musculoskeletal event. Continue to monitor. Check follow-up troponin in about 6 hours. approximately an additional 15 minutes was spent managing this extra visit. Medical - PN: Qual - VTE Deep Vein Thrombosis/Pulmonary Embolism Present on Admission: No
--- NOTE | 2017-01-08 19:41 | XRay Report ---
CLINICAL INFORMATION: Chest pain COMPARISON: 01/07/2017 FINDINGS: Heart size, mediastinum and pulmonary vessels are normal. Pacemaker leads in stable satisfactory position. Marked chronic elevation right diaphragm with loculated pleural effusion in the right major fissure is unchanged. No infiltrates IMPRESSION: No change in small right pleural effusion loculated in the major fissure. Chronic elevation right diaphragm. No new abnormality Interpreted and Authenticated by: Daniel Selby 01/08/17
[2017-01-08] MEDS: ATORVASTATIN 20 MG TABLET PO SCH (21:38)
[2017-01-09 05:43] LABS: Basophils # (Auto) 0 K/mcL (0.0-0.3); Basophils % (Auto) 0.4 % (0.0-2.0); Eosinophils # (Auto) 0.3 K/mcL (0.0-0.7); Eosinophils % (Auto) 4.4 % (0.0-7.0); Granulocytes % (Auto) 62.4 % (38.0-78.0); Lymphocytes # (Auto) 1.5 K/mcL (1.5-4.8); Lymphocytes % (Auto) 23.1 % (15.5-49.0); Mean Cell Volume 87.8 fL (80.0-100.0); Mean Corpuscular HGB Conc 34.1 g/dL (31.0-36.0); Mean Corpuscular Hemoglobin 29.9 pg (26.0-34.0); Monocytes # (Auto) 0.6 K/mcL (0.1-0.9); Monocytes % (Auto) 9.7 % (1.0-12.0); Platelet Count 257 K/mcL (140-440); Red Cell Distribution Width 14.1 % (11.5-14.5)
[2017-01-09 06:00] LABS: ALT/SGPT 11 U/l (0-40); Albumin 3.8 gm/dL (3.2-5.2); Albumin/Globulin Ratio 1.7 (1.0-2.3); Alkaline Phosphatase 70 U/L (39-117); Bilirubin,Direct < 0.2 mg/dL (0.0-0.3); Blood Urea Nitrogen 37 mg/dl (8-23); Gamma Glutamyl Transpeptidase 17 U/L (8-61); Magnesium 2.3 mg/dL (1.6-2.5); Uric Acid 7.6 mg/dL (2.5-8.0)
[2017-01-09] MEDS: METOPROLOL SUCCINATE 25 MG TAB.XL.24H PO SCH ×2 (08:15→11:06)
[2017-01-09] MEDS: POTASSIUM CHLORIDE 10 MEQ TABLET PO SCH (08:15)
[2017-01-09] MEDS: DOCUSATE SODIUM 100 MG CAPSULE PO SCH (08:16)
[2017-01-09] MEDS: ASPIRIN 81 MG TAB.CHEW PO SCH (08:16)
[2017-01-09] MEDS: PARoxetine 20 MG TABLET PO SCH (08:17)
[2017-01-09] MEDS: LEVOFLOXACIN 250 MG/50 ML BAG IV SCH (08:19)
--- NOTE | 2017-01-09 11:49 | Discharge Summary ---
Medical - DS: Prov Patient information: Note initiated : 01/09/17 at 11:32 am Patient: Mikey Harmon 86 y/o M admitted on 01/06/17 for SOB, Dizzy, High BP This AM/COPD w/ Exacerbation, pneumonia. Date of admission: 01/06/17 14:25 Discharge date: 01/09/17 Primary care physician: Shameka Neumann NP, [facility] #[id number] Admitting clinician: Niki Davalos Attending physician on discharge: Niki Davalos Medical - DS: Meds - Discharge Medications Prescriptions: Nitroglycerin 0.4 mg SL Q5MIN PRN #25 tab.subl PRN Reason: Chest Pain Furosemide [Lasix] 20 mg PO DAILY #30 Levofloxacin [Levaquin] 250 mg PO DAILY #7 tablet Metoprolol Succinate [Toprol Xl] 50 mg PO DAILY #1 Active and Home Medications: discharge medications: Warfarin 5 mg each evening. Please have level rechecked on Tuesday, January 10 and have your doctor adjust dose if needed. Aspirin--please decrease to 81 mg once a day, and then verify correct dose with your doctorat follow-up Levaquin 250 mg 1 a day for the next 7 days for presumed pneumonia metoprolol XL 25 mg please double this dose to 50 mg once a day. Lasix/furosemide--please decrease dose to 20 mg once a day. Ondansetron 4 mg every 6 hours as needed for nausea Paxil 20 mg daily as before Potassium chloride 10 mEq every morning Tylenol 650 mg 4 times a day as needed albuterol inhaler as needed Atorvastatin 40 mg every evening Colace stool softener twice a day as needed Previous Home Medications: Metoprolol Succinate [Toprol Xl] 25 mg PO DAILY 02/05/15 [History Confirmed 03/17 Last Taken 08/06/15 10:00] Ondansetron [Zofran Odt] 4 mg PO Q6HP PRN 08/05/15 [History Confirmed 01/06/17 Last Taken 07/30/15] PARoxetine [Paxil] 20 mg PO DAILY 08/05/15 [History Confirmed 01/06/17 Last Taken 08/05/15 10:00] Furosemide [Lasix] 60 mg PO DAILY 10/17/15 [History Confirmed 01/06/17 Last Taken Unknown] Potassium Chloride [Klor-Con M10] 10 meq PO DAILY 10/17/15 [History Confirmed Last Taken Unknown] Aspirin [Ecotrin] 325 mg PO DAILY #30 tab.ec 10/21/15 [Rx Confirmed 01/06/17 Last Taken Unknown] Atorvastatin [Lipitor] 40 mg PO HS #30 tablet 10/21/15 [Rx Confirmed 01/06/17 Last Taken Unknown] Docusate Sodium [Colace] 100 mg PO BID #0 capsule 10/21/15 [Rx Confirmed Last Taken Unknown] Albuterol Sulfate [Ventolin] 2 puff INH Q4-6HP PRN #1 inhaler 08/13/16 [Rx Confirmed 01/06/17 Last Taken Unknown] Warfarin [Coumadin] 5 mg PO DAILY 08/13/16 [History Confirmed 01/06/17 Last Taken Unknown] Medical - DS: [facility] Hospital course: January 06, 2017: History of present illness: Mr. Harmon is an 86 year old male who presents with increased shortness of breath. This 86-year-old man reports that he's had numerous episodes of pneumonia over the last 2 years, ever since he fell and caused a diaphragm injury. e says he was feeling relatively well the last few days, and then when he awakened this morning, noticed he was quite significantly short of breath. He believes he had dyspnea both with lying down as well as with exertion. He also felt quite dizzy today. He has some degree of chronic dizziness, presumably from previous strokes, but said it seemed quite a bit worse today. He says he has a chronic cough, and he is not sure if this is any worse today. He believes his cough is nonproductive. he otherwise denies fever or chills, headaches, new ear or eye symptoms sore throat. He also reports that he has been having left-sided chest discomfort on and off all day. He believes it was nonradiating but is associated with his shortness of breath, at least intermittently. he denies palpitations, abdominal pain, nausea or vomiting, diarrhea or constipation. He has chronic bladder dysfunction and I believe incontinence, since a previous prostate surgery. -towards the end of our interview, the patient stated "i'm going now", and when asked to clarify he said he was very dizzy. He then indicated that he was having left-sided chest pressure. The electronic device monitor at that time initially showed a rapid, regular tachycardia, with a heart rate of around 120. he patient was given sublingual nitroglycerin, and then5 mg of Lopressor IV. His symptoms eventually resolved. eKG showed probable sinus versus ectopic atrial tachycardia at a rate of 105, left bundle branch block. January 07: -the patient had a fairly quiet evening, although he reports one episode of dizziness. His breathing has been a little better, but he notes that when he took a shower this morning he got quite short of breath. O2 saturations have remained 90-94% on room air. He continues to deny much in the way of a cough. He denies fevers or chills. -he really was not wheezing either last night or today, to my exam. His daughter, who is a respiratory therapist, denies that he has any history of COPD History right were discontinued. -he says he still has chest discomfort on and off which is vague, and he cannot quite describe ow often it is coming and going. He has not had any more tachycardia arrhythmias or apparent V. tach. troponins were negative 3, and BNP was also normal. -atrial fibrillation now has a controlled rate. -INR continues in the therapeutic range. -blood pressures have been fine since admission. otherwise, he denies fever or chills, headaches, sore throat, palpitations, abdominal pain, nausea or vomiting, diarrhea or constipation, dysuria. He does have some chronic bladder incontinence issues January 08: the patient has done well overnight. HisO2 saturations at rest on room air,are fine. He still tends to feel quite dyspneic with exertion. He was able to walk in the hallway today, with physical therapy. He does become a little tachycardic, and his O2 saturation drops to about 89%, with exertion, on room air, but he does recover quickly. He feels he is quite a bit improved compared to admission. His daughter notes that he is generally fairly active at home,but is also impulsive, and does not always or take care, when he should. he tells me he has been unable to walk very long distances for a while, due to some mild dyspnea with exertion. January 09:Hospital course: today, the patient says he is feeling fine. he has been up walking in the hallway with physical therapy. He is still impulsive,and hasissues with balance , so is still a fall risk. However, the physical therapist notes that he did much better today, with verbal cuing, and has slowed down a bit. The therapist thinks the patient would not do well with a walker, as he would likely be frustrated by it. He thinks a cane might be a better compromise. the patient did have a fleeting episode of sharp chest pain last evening and EKG and chest x-ray were unchanged. This has resolved. Etiology of that is uncertain. heart rhythm has remained fairly stable over the last 24 hours. He is now on double dose metoprolol and generally heart rate stay well below 100 and most often has been paced at 70. the patient did come in quite tachycardiac, when he was very dyspneic. He was also hypertensive. He also had a run of what appears to be V. tachof about 8 beats, but has had no further arrhythmias since metoprolol dose was increased. blood pressure has been well controlled on metoprolol and no Lasix. In fact, he appeared a bit on the dry sideafter receiving Lasix in the emergency room, so Lasix has been on hold. bNP was normal on admission. Echocardiogram was done2 days ago, but unfortunately we do not have a transcribed report yet. -he markedly dyspnea that he presented with has improved greatly. Our assumption is that he had a brewing pneumonia on admission, as he seems to have responded to IV Levaquin. Chest x-ray continues to show elevated right hemidiaphragm with atelectasis of the right middle and lower lobes and small amount of loculated pleural effusion. He is likely at risk for recurrent pneumonias, but it sounds like there is not enough fluid there to tap. otherwise, he denies fever or chills chest pain or palpitations Dyspnea with exertion has improved. He thinks he is probably back at baseline. He denies any GI or complaints at this time. On exam,the patient is sitting up in bed, and I also met with him as he was walking in the hallway, he is in no acute distress. Neck is supple without obvious JVD. Cardiac exam shows a regular rhythm, and on telemetry, is paced. Lungs:He has some decreased breath sounds at the right base, with a few crackles , but otherwise lungs are clear, without rales or rhonchi or wheezes. Abdomen is soft and nontender. Extremities: Show no significant edema. Neurologic exam: Is grossly nonfocal. assessment and plan: #1. Pulmonary. -Patient presents with dyspnea, and mild hypoxia on room air. -initially this was thought to be a COPD exacerbation, but his daughter confirms that he has no history of COPD. he does have a chronic pleural effusion related to chronic hemidiaphragm elevation and right lower and right middle lobe atelectasis. steroids and ipratropium nebulizer treatments were discontinued. (recent chest CT scan from last month did not show signs of emphysema) -chest x-ray does not show evidence of CHF, and BNP was negative. There still is no definite infiltrate on x-ray, but I suspect his moderate hypoxia on room air is related to both compression atelectasis of his right lung lobes and possible early recurrent, pneumonia. he was treated empirically with Levaquin, low-dose due to renal function, and has clinically improved. His breathing is probably now back to baseline. -CT scan of his chest was not done to rule out PE, as he is therapeutic on Coumadin Renal function also would not have allow this. #2. Cardiac. -during the admission interview, the patient appeared to develop regular, wide- complex, tachycardia. This may have been a run of ventricular tachycardia, versus SVT or atrial tachycardia. His chest pain and tachycardia and shortness of breath all resolved after a dose of sublingual nitroglycerin and IV metoprolol. -follow-up troponins were negative for acute NE. BNP remains normal. Echocardiogram results are pending still. -increased beta messi dose. - Continue aspirin and Coumadin. It is not clear who is managing his anticoagulants, whether that be cardiology or neurology or his PCP. I would question having him on full dose aspirin with the Coumadin, so have decreased this to 81 mg a day. He will resume his usual Coumadin dose, but should have this rechecked tomorrow and his primary care doctor's office, as he is still on antibiotics. - patient's renal function would not likely tolerate an NARCISO inhibitor. continue atorvastatin. -history of atrial fibrillation with controlled rate. rate has been well- controlled -continue metoprolol increased dose 50 mg daily. -hypertension: Blood pressure was quite high in the emergency room. blood pressures are back to normal. -Continue Coumadin - INR is therapeutic. -continue statin for hyperlipidemia. #3. Neurologic. 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 Continue Coumadin.also low-dose aspirin. The patient needs to verify with either his primary care physician or one of his specialists what range they want the Coumadin in and how much aspirin to take. #4. Psychiatric. -History of anxiety.previously treated with Paxil. #5. Renal. History of CKD. Creatinine is stable. 36. CODE STATUS: full code, although he says he would not want long-term life support. his daughter,Lynnette, our respiratory therapist, should be his POA, he says. I was able to review this with the patient and with his daughter, Lynnette, today. They will work on getting something in writing to clarify his wishes. 37. DVT prophylaxis:Subcutaneous heparin. #8. Renal. The patient did bump his creatinine . I suspect this was due to a combination of mild dehydration after receiving Lasix in the emergency room, and also receiving captopril in the emergency room. this improved after gentle IV hydration. approximately 40 minutes was spent today, interviewing and examining the patient , reviewing his case with the physical therapist as well as his daughter Lynnette, as well as nursing, and writing orders. Discharge diagnosis: presumed early pneumonia, hypoxia, A. fib with RVR - Time Spent with Patient Total time spent providing and/or coordinating discharge services: Greater than 30 minutes Medical - DS: Exam - Constitutional Vitals: Vital Signs Temp Pulse Resp BP BP BP Pulse Ox 01/09/17 11:31 98.1 F 16 131/91 93 01/09/17 06:38 98.6 F 20 128/66 96 01/09/17 04:01 72 94 01/09/17 03:01 70 122/71 92 01/09/17 02:01 71 133/71 94 01/09/17 01:01 72 128/76 91 01/09/17 00:03 70 95 01/09/17 00:01 72 117/72 96 01/08/17 23:01 72 135/62 93 01/08/17 22:01 72 131/78 92 01/08/17 21:01 71 133/67 94 01/08/17 20:26 71 92 01/08/17 20:01 72 122/76 92 01/08/17 19:02 71 130/71 93 06/10/17 18:02 72 129/83 89 L 01/08/17 16:46 73 148/90 95 01/08/17 16:41 70 145/92 94 01/08/17 16:36 73 147/93 96 01/08/17 16:33 70 153/93 96 01/08/17 16:01 73 147/89 94 01/08/17 16:00 98.3 F 28 H 153/93 96 01/08/17 12:04 69 139/90 96 01/08/17 12:03 142/88 01/08/17 12:02 132/103 01/08/17 12:00 97.9 F 20 139/90 98 Intake and Output 01/08/17 01/09/17 01/09/17 21:59 05:59 13:59 Intake Total 180 / 180 50 / 50 Output Total 575 / 575 1500 / 1500 225 / 225 Balance -395 / -395 -1450 / -1450 -225 / -225 Intake: IV 50 / 50 Oral 180 / 180 Output: Void Amount 575 / 575 1500 / 1500 225 / 225 Other: # Voids 1 Weight 216 lb 11.43 oz Medical - DS: Data Labs on day of discharge: Labs from last 24 hours 01/09/17 01/09/17 01/09/17 03:57 03:57 03:57 WBC 6.4 RBC 4.20 L Hgb 12.6 L Hct 36.9 L MCV 87.8 MCH 29.9 MCHC 34.1 RDW 14.1 Plt Count 257 MPV 7.3 L Gran % 62.4 Lymph % (Auto) 23.1 [place] % (Auto) 9.7 Eos % (Auto) 4.4 Baso % (Auto) 0.4 Gran # 4.0 Lymph # 1.5 [place] # 0.6 Eos # 0.3 Baso # 0 PT 22.1 H INR 1.9 H Sodium 139 Potassium 5.0 Chloride 105 Carbon Dioxide 23 Anion Gap 11.0 BUN 37 H Creatinine 1.9 H GFR Calculation 31 Glucose 90 Uric Acid 7.6 Calcium 9.0 Phosphorus 2.6 L Magnesium 2.3 Total Bilirubin 0.4 Direct Bilirubin < 0.2 GGT 17 AST 13 ALT 11 Alkaline Phosphatase 70 Lactate Dehydrogenase 144 Troponin T Total Protein 6.1 Albumin 3.8 Globulin 2.3 Albumin/Globulin Ratio 1.7 Triglycerides 207 H 01/08/17 23:00 WBC RBC Hgb Hct MCV MCH MCHC RDW Plt Count MPV Gran % Lymph % (Auto) [place] % (Auto) Eos % (Auto) Baso % (Auto) Gran # Lymph # [place] # Eos # Baso # PT INR Sodium Potassium Chloride Carbon Dioxide Anion Gap BUN Creatinine GFR Calculation Glucose Uric Acid Calcium Phosphorus Magnesium Total Bilirubin Direct Bilirubin GGT AST ALT Alkaline Phosphatase Lactate Dehydrogenase Troponin T < 0.01 Total Protein Albumin Globulin Albumin/Globulin Ratio Triglycerides January 08: Troponin is normal less than 0.01 blood cultures are negative so far. chest x-ray shows no change , and small right pleural effusion, loculated in the major fissure. Chronic elevation of right hemidiaphragm. EKG showed a paced rhythm at 70. With left bundle branch block january 07: Chest x-ray shows markedly chronic elevation of the right diaphragm with atelectasis in the right middle and lower lobes stable. Moderate right pleural effusion loculated in the major fissure, increasing modestly since yesterday. echocardiogram: Results pending. January 06: Nasal MRSA screen is negative. BNP is normal at 324 CBC differential: Shows 3000 granulocytes, and is otherwise fairly normal. Pro time is 30, INR 2.8 Troponin is normal at less than 0.01 ABG on room air?: PH 7.40, CO2 40, PO2 80, bicarbonate 24, O2 saturation 96% chest x-ray:Chronic elevation of right diaphragm with atelectasis of the right and middle lower lobes Small right pleural effusion, with loculated fluid, stable. eKG #1: Shows normal sinus rhythm at a rate of about 70, first-degree AV block, left bundle branch block. EKG #2: Shows probable sinus tachycardia at a rate of 105, versus ectopic atrial tachycardia. Left bundle branch block. no significant change from the EKG done at 1029 this morning. December 14, 2016: Chest CT: Persistent right hemidiaphragm elevation. Relatively small right pleural effusion, loculated within the right major fissure. No significant change since July 2016. October 17, 2015: Echocardiogram: Mild concentric LVH with prominent septal dyssynergy and overall mild systolic dysfunction. Ejection fraction 45%. Mild left atrial enlargement. Medical - DS: A/P - Patient/Caregiver Discharge Instructions Activity: increase activity as tolerated Diet: Cardiac Additional Instructions: #1.We rearranged your medicines: -Double your metoprolol to 50 mg once a day -Resume warfarin 5 mg each evening, but please have this level rechecked on Tuesday. Please decrease your aspirin to a baby aspirin, 81 mg, once a day. Please verify both your Coumadin and aspirin doses with your doctor when you see him in follow-up. He may want to review this with either the neurologist or the superintendent drivers as well. -Please decrease your furosemide down to 20 mg once a day as this has been on hold during the hospital stay. You may or may not need to increase that back up to 60 mg later. Please verify this with your doctor. #2. For presumed early pneumonia, continue Levaquin 250 mg once a day for the next 7 days. #3. you still have significant balance issues. Please use a cane, to help stabilize your gait, and try to walk more slowly and carefully. #4. you had an echocardiogram done last Tuesday, but results are not yet in. Please ask your doctor to send for these results. -please monitor your pulse and blood pressure regularly, and call your doctor for any pulse less than 70 or greater [id number], and any systolic blood pressure less than 95 or greater than 150 Prescriptions: Furosemide [Lasix] 20 mg PO DAILY #30 Levofloxacin [Levaquin] 250 mg PO DAILY #7 tablet Metoprolol Succinate [Toprol Xl] 50 mg PO DAILY #1 - Problem Maintenance (1) Atrial fibrillation Status: Chronic (2) CKD (chronic kidney disease) Status: Chronic (3) Hypertensive urgency Status: Acute (4) Ventricular tachyarrhythmia Status: Acute - Follow up Plan Follow up with: Shameka Neumann ARNP [Primary Care Provider] - Niki Davalos MD [Physician] - Disposition: Home, Self-Care Prognosis: Good Rehab Potential: Good I certify that the patient requires SNF services: Yes Overall status at discharge: patient is progressing back to baseline Medical - DS: Qual - VTE Deep Vein Thrombosis/Pulmonary Embolism Present on Admission: No
--- NOTE | 2017-01-09 13:55 | Echocardiogram Report ---
ECHOCARDIOGRAM: 2-D and M-mode echocardiography with cardiac Doppler and color flow imaging were performed with a [employer] Aplio MX. (See accompanying M-mode and Doppler reports for quantitation.) INDICATION: Dyspnea, hypoxia, chest pain, and a possible ventricular tachycardia. The study was technically difficult for anatomic reasons. Overall size of the RA, RV, and aortic root appeared normal. The LA and LV appeared mildly enlarged. LV wall thickness appeared mildly increased. Septal motion appeared prominently dyssynergic. Overall, LV systolic performance appeared mildly depressed. Estimated ejection fraction is 45 percent. There was no evidence for mural thrombi. The aortic root appeared sclerotic. The aortic valve appeared trileaflet and normal. There was no evidence for aortic stenosis or aortic regurgitation by Doppler interrogation. The mitral and tricuspid valves appeared unremarkable. No more than trivial mitral regurgitation was noted. Pulmonary venous interrogation disclosed a slight " abdominis. The pulmonic valve was not visualized and could not be well interrogated. Tricuspid regurgitation, probably mild (1+), was noted. No intracardiac shunting was appreciated. There was no evidence for pericardial effusion. The IVC was not adequately visualized. A regular rhythm with AV synchrony, rate 70, and wide QRS was present. CONCLUSION: Mild LV enlargement and concentric hypertrophy with prominent septal dyssynergy, as can be seen with artificial RV pacing and/or IVCD, and overall mild systolic dysfunction. Mild LA enlargement. Poorly visualized inferior vena cava. Since the previous study 10/18/2015, there are probably no major changes. (See accompanying M-mode and Doppler reports for quantitation). ECHOCARDIOGRAPHY M-MODE CALCULATIONS: HT: 71 inches. WT: 219 pounds. BSA: 2.19 meters squared. NORMALS: AORTA: AORTIC ROOT 3.3 2.0-3.7 cm LEFT ATRIUM 3.8 1.9-4.0 cm MITRAL VALVE: EXCURSION 2.0 1.9-2.7 cm EPSS 0.3 <0.5 cm LT VENTRICLE: LVID (ED) 6.0 3.5-5.7 cm LVID (ES) SEPTAL THICKNESS 1.1 0.6-1.1 cm SEPTAL EXCURSION 3-0.8 cm LVPW THICKNESS 1.2 0.6-1.1 cm LVPW EXCURSION 1.1 0.9-1.4 cm MINOR AXIS FS 25%-40% RT VENTRICLE: RVID (ED) 0.9-2.6 cm(up to 3cm if LLD) QUALITATIVE DOPPLER FLOW STUDIES MITRAL VALVE MR, probably trivial. AORTIC VALVE TRICUSPID VALVE TR, probably mild (1+). PULMONIC VALVE QUANTITATIVE DOPPLER FLOW STUDIES SAMPLE SITES VELOCITIES PEAK PRESSURE VALVE AREA and/or VALVE WINDOW (PEAK,M/SEC) DROP (GRADIENT) PRESSURE HALF-TIME MV (Diastole) 0.7 0.9 MV (Systole) 2.7 AO (Diastole) AO (Systole) 1.5 TV (Systole) 2.5 PV (Systole) PV (Diastole) LWG:hugo Job ID: [id number] Doc ID: [id number] Edy Cabrera MD
[2017-01-09] MEDS ORDERED: WARFARIN 7.5 MG TABLET PO ONE (14:00)
== END 2017-01-09 14:20 | disposition home or self-care (01) | DRG 194 ==
LOC: ED 10:24 → ICU 14:20
PROVIDERS: ADMIT Internal Medicine; ATTEND Internal Medicine

== ENCOUNTER 2019-05-13 18:28 | Inpatient (IN) ==
[2019-05-13] MEDS ORDERED: fentaNYL 100 MCG/2 ML VIAL IV ONE (18:47)
[2019-05-13] MEDS ORDERED: ONDANSETRON 4 MG/2 ML VIAL ONE (18:47)
[2019-05-13] MEDS: HYDROmorphone 2 MG/ML VIAL IV PRN ×2 (19:49→21:19)
--- NOTE | 2019-05-13 20:36 | Cat Scan Report ---
CLINICAL INFORMATION: Trauma COMPARISON: Head CT 12/02/2016 TECHNIQUE: 2.5 mm helical slices were obtained in the skull base to vertex. Following reconstruction, axial reformatted images were reviewed at bone and parenchymal windows. The exam was performed using radiation dose optimization techniques including, but not limited to, automated exposure control, adjustment of the mA and/or kV according to patient size and use of iterative reconstruction technique. FINDINGS: The ventricles, sulci, fissures, and cisterns are symmetrically enlarged compatible with moderate age-related atrophy - no subdural hemorrhage or other extra-axial fluid collection appreciated. Moderate patchy chronic ischemic changes in the the cerebral white matter again seen. Small remote cortical based infarcts seen in the medial left temporal and right occipital lobe with remote lacunar infarcts scattered about the basal ganglia and deep bifrontal white matter again seen. There is no intracerebral hemorrhage, mass effect, edema or other acute finding. Bone windows show subtotal opacification of the left sphenoid sinus - also noted on the previous study. There is no fracture or other focal osseous abnormality. IMPRESSION: Moderate atrophy with chronic ischemic changes in the deep cerebral white matter and small remote cortical-based infarcts in the left temporal and right occipital lobe. Scattered remote lacunar infarcts in the basal ganglia deep left frontal white matter. There is no intracerebral hemorrhage or acute posttraumatic change Severe chronic left sphenoid sinusitis Interpreted and Authenticated by: Daniel Selby 05/13/19
--- NOTE | 2019-05-13 20:47 | Cat Scan Report ---
CLINICAL INFORMATION: Trauma COMPARISON: None. TECHNIQUE: 80ml of Isovue 370 were injected intravenously and 60 seconds later .625mm helical slices were obtained from the mid L4 through the subtrochanteric regions. Following reconstruction, 2.5 mm sagittal, coronal and axial reformations were processed. The exam was reviewed in bone and soft tissue windows. The exam was performed using radiation dose optimization techniques including, but not limited to, automated exposure control, adjustment of mA and/or kV according to patient size and use of iterative reconstruction technique. FINDINGS: A transverse subcapital fracture left hip shows no displacement. No other osseous abnormalities. The SI and hip joints show only minimal degeneration. In the lower lumbar spine, there is grade 1 L5-S1 spondylolisthesis with a right unilateral spondylitic defect and broad disc protrusion. This results in severe bilateral IV foraminal narrowing with impingement of the exiting L5 nerve roots. At L4-5, moderate broad calcified disc protrusion results in central canal stenosis. Soft tissues show prostate, seminal vesicles and urinary bladder to be normal. Surgical anastomosis of the mid sigmoid colon is unremarkable. The visualized large bowel and small bowel are normal. There is no free air, free fluid and no adenopathy. Small amount of subcutaneous edema is seen over the right flank IMPRESSION: 1. Acute nondisplaced subcapital fracture - left hip. 2. L5-S1: Grade 1 spondylolisthesis with right unilateral spondylolysis and broad disc protrusion resulting in severe bilateral IV foraminal narrowing and moderate central canal stenosis. L4-5 moderate broad disc protrusion results in mild central canal stenosis. Interpreted and Authenticated by: Daniel Selyb 05/13/19
--- NOTE | 2019-05-13 20:48 | XRay Report ---
CLINICAL INFORMATION: trauma COMPARISON: None. FINDINGS: A transverse nondisplaced acute subcapital fracture left hip is appreciated. No other osseous abnormalities. Both SI joints show only minimal degeneration. Soft tissues normal IMPRESSION: Acute transverse nondisplaced subcapital fracture - left hip Interpreted and Authenticated by: Daniel Selby 05/13/19
--- NOTE | 2019-05-13 20:56 | Cat Scan Report ---
CLINICAL INFORMATION: Trauma. History of right lung mesothelioma COMPARISON: None. TECHNIQUE: 0.625 mm helical slices were obtained from the skull base through the superior T2 end plate, and following reconstruction, 2.5 mm sagittal, coronal and axial reformations were then processed. The exam was reviewed at bone and soft tissue windows. The exam was performed using radiation dose optimization techniques including, but not limited to, automated exposure control, adjustment of the mA and/or kV according to patient size and use of iterative reconstruction technique. FINDINGS: No fracture or other focal osseous abnormalities identified.. There is 2 mm of C7 and 2 mm at T1 anterior subluxation due to degenerative facet disease. The visualized brainstem, cerebellum and cervical cord are normal in contour and caliber without abnormality. The lung apices are partially included on the film. The patient has a known mesothelioma. There is a 5 cm pleural-based mass in the medial right lung apex which invades the right mediastinum and markedly compresses the upper thoracic esophagus. A 3.4 cm pleural-based mass is seen more inferiorly in the right lung apex. These were present on plain film 09/04/2018. At C2-3, mild broad disc spur complex results in mild central canal narrowing. C3-4, mild broad disc spur complex and facet arthropathy result in severe right and moderate left IV foraminal narrowing and mild central canal narrowing At C4-5, moderate broad disc spur complex facet arthropathy result in severe bilateral IV foraminal narrowing and mild central canal narrowing C5-6, moderate broad disc spur complex results in mild central canal narrowing C6-7, there is fusion. The central canal and IV foraminal are normal with At C7-T1 moderate broad disc protrusion results in severe bilateral IV foraminal narrowing with mild central canal narrowing. IMPRESSION: 1. No fracture or acute posttraumatic change 2. Lung AP apices are partially included on the film. There is a 5 cm pleural-based mass in the medial right lung apex invading the right lateral mediastinum and markedly depressing the esophagus. This almost certainly results in dysphagia. A smaller 3.4 cm pleural-based mass noted more inferiorly in the right lung apex. History of mesothelioma acknowledged. Most of these were seen on the plain film 09/04/2018 3. Multilevel degenerative change Interpreted and Authenticated by: Daniel Selby 05/13/19
--- NOTE | 2019-05-13 21:27 | Emergency Department Note ---
Lower Extremity Injury HPI - General Chief Complaint: Extremity Injury, Lower Stated Complaint: fall Time Seen by Provider: 05/13/19 18:36 Source: EMS Mode of arrival: EMS Limitations: no limitations - History of Present Illness HPI Narrative: This is a [facility]dc patient who apparently had a syncopal spell hit his head and there was concern for injury to head neck and also complained of some left hip pain. Patient is on Coumadin for atrial fibrillation. 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 - Related Data Home Medications Medication Instructions Recorded Confirmed Potassium Chloride [Klor-Con M10] 10 meq PO DAILY 10/17/15 05/14/19 Warfarin [Coumadin] 5 mg PO DAILY 08/13/16 05/14/19 Metoprolol Succinate [Toprol Xl] 25 mg PO DAILY 07/19/17 05/14/19 gemcitabine 1 gram intravenous 2,000 mg INTRAVESIC QWEEK each 07/20/17 07/20/17 solution Cyclobenzaprine 10 mg PO Q6 05/14/19 05/14/19 Fentanyl 1 patch TRANSDERMAL Q72 05/14/19 05/14/19 Furosemide [Lasix] 20 mg PO DAILY 05/14/19 05/14/19 LORazepam 1 mg PO QPM 05/14/19 05/14/19 Omeprazole 40 mg PO QAM 05/14/19 05/14/19 Tamsulosin 0.4 mg DAILY 05/14/19 05/14/19 Vitamin C 500 mg PO BID 05/14/19 05/14/19 busPIRone 10 mg PO BID 05/14/19 05/14/19 Previous Rx's Medication Instructions Recorded Albuterol Sulfate [Ventolin] 2 puff INH Q4-6HP PRN #1 inhaler 08/13/16 Nitroglycerin 0.4 mg SL Q5MIN PRN #25 tab.subl 01/09/17 CPAP #1 ea 05/02/17 CPAP THERAPY #1 ea 07/20/17 Allergies Allergy/AdvReac Type Severity Reaction Status Date / Time Penicillins Allergy Severe ANAPHYLAXIS Verified 03/30/19 07:43 Review of Systems All systems ED: reviewed and negative except as stated. 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) Altered mental status (Acute) Pneumonia (Acute) COPD (chronic obstructive pulmonary disease) (Chronic) Hypertensive urgency (Acute) Hypoxia (Acute) CKD (chronic kidney disease) (Chronic) Ventricular tachyarrhythmia (Acute) Diaphragm injury (Chronic) Acute bacterial rhinosinusitis (Resolved) Bronchitis (Resolved) Community acquired bacterial pneumonia (Resolved) Shoulder sprain (Resolved) Past Surgical History (Last Reviewed 07/20/17 @ 11:16 by Isaiah Auguste MD) No pertinent past surgical history (Acute) Family History (Last Reviewed 07/20/17 @ 11:16 by Isaiah Auguste MD) Other No pertinent family history Medical history: Reports: arthritis, atrial fibrillation, cancer, COPD, 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 Denies: DM, GERD Psychiatric history: Reports: anxiety, depression, PTSD, prior suicide attempt Surgical history ED: Reports: colectomy, pacemaker/AICD - Social History smoking status: Former smoker Alcohol use: Reports: None Drug use: Reports: unknown Physical Exam Limitations: no limitations General appearance: alert Head: atraumatic Eye: Present: normal appearance ENT: Present: normal exam, other (He has a small abrasion to the left upper eyebrow area) Neck: Present: normal inspection Chest: Present: normal inspection Respiratory: Present: normal lung sounds bilaterally Cardiovascular: Present: irregular rhythm, normal heart sounds Abdominal: Present: soft. Absent: distention, tenderness Neurological: Present: alert Psychiatric: Present: normal affect Skin: Present: warm, dry Course Vital Signs Temperature 99.1 F H 05/13/19 18:30 Respiratory Rate 20 05/13/19 18:30 Pulse Oximetry (%) 90 05/13/19 18:30 Temperature 98.2 F 05/14/19 04:01 Pulse Rate 76 05/14/19 04:01 Respiratory Rate 22 05/14/19 04:01 Blood Pressure 138/72 05/14/19 04:01 Pulse Oximetry (%) 96 05/14/19 04:01 Extremity Injury, Lower - MDM Narrative Medical decision making narrative: CT of head and neck were unremarkable but the left hip does show a subcapital nondisplaced fracture. I spoke with Dr. Horton the orthopedist and the patient will be admitted to the hospital for surgery most likely tomorrow. - Lab Data Result diagrams: 05/14/19 05:30 05/14/19 05:30 Lab Results 05/13/19 05/13/19 05/13/19 Range/Units 21:30 21:30 21:30 WBC 6.5 (4.5-11.0) K/mcL RBC 3.78 L (4.50-5.90) M/mcL Hgb 10.9 L (13.5-16.5) g/dL Hct 32.7 L (41.0-55.0) % MCV 86.4 (80.0-100.0) fL MCH 29.0 (26.0-34.0) pg MCHC 33.5 (31.0-36.0) g/dL RDW 13.9 (11.5-14.5) % Plt Count 313 (140-440) K/mcL MPV 6.8 L (7.4-10.4) fL Gran % 73.5 (38.0-78.0) % Lymph % (Auto) 16.5 (15.5-49.0) % [place] % (Auto) 8.7 (1.0-12.0) % Eos % (Auto) 1.0 (0.0-7.0) % Baso % (Auto) 0.3 (0.0-2.0) % Gran # 4.8 (1.8-8.0) K/mcL Lymph # (Auto) 1.1 L (1.5-4.8) K/mcL [place] # (Auto) 0.6 (0.1-0.9) K/mcL Eos # (Auto) 0.1 (0.0-0.7) K/mcL Baso # (Auto) 0 (0.0-0.3) K/mcL PT 23.0 H (11.9-14.5) sec INR 2.1 H (0.9-1.1) Sodium 135 (133-145) mmol/L Potassium 4.4 (3.3-5.1) mmol/L Chloride 103 (96-108) mmol/L Carbon Dioxide 26 (22-30) mmol/L Anion Gap 6.0 L (8-16) BUN 19 (8-23) mg/dl Creatinine 1.4 H (0.7-1.2) mg/dl GFR Calculation 44 Glucose 108 H (70-105) mg/dL Calcium 8.5 L (8.6-10.4) mg/dl Total Bilirubin 0.2 (0.0-1.0) mg/dL AST 8 (0-37) U/l ALT 6 (0-40) U/l Alkaline Phosphatase 82 (39-117) U/L Total Protein 6.3 (5.9-8.4) gm/dL Albumin 3.2 (3.2-5.2) gm/dL Globulin 3.1 (2.2-3.7) gm/dL Albumin/Globulin Ratio 1.0 (1.0-2.3) - Radiology Data Radiology results reviewed: Yes I reviewed the patient's radiology results. Disposition Pt seen by FACILITIES ADMINISTRATOR/PA only: No Clinical Impression: Hip fracture Disposition: Xfer As Inpt ([facility]) Condition: Good Time of Disposition: 21:27
[2019-05-13] MEDS ORDERED: LACTATED RINGERS 1,000 ML IV SCH (21:30)
--- NOTE | 2019-05-13 21:57 | Internal Med History&Physical ---
Medical - H&P: HPI Patient information: Note initiated : 05/13/19 at 9:55 pm Service Date, if different from initiated Date: [] Patient: Mikey Harmon a 88 y/o M admitted on for fall. Chief Complaint: [] History of present illness: Mr. Harmon is a 88 year old M With malignant mesothelioma on hospice who resides at [facility] was eating dinner while sitting on his walker. Afterwards he got up to walk away and sounds like he passed out. Patient thinks he might of stumbled on walker but next thing he remembers on the ground people looking at them. He complained at that time of hip pain. History obtained from charts and family as well as patient although he is a bit of a poor historian. Vital signs are stable. He is on warfarin for H fibrillation. CT of the head was done which showed no hemorrhage. CT the pelvis showed a subcapital fracture of the left hip. Dr. Horton was contacted and plans for hip pinning in the morning per discussion with patient and daughter. Patient denies any current complaints including chest pain shortness of breath cough headache. Controlled hip pain. Laboratory work is currently pending Review of Systems: Pertinent positives as above. Denies h eadache/fever/chills/nausea/vomiting/chest or abdominal pain/cough/dyspnea/diarrhea. 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) Altered mental status (Acute) Pneumonia (Acute) COPD (chronic obstructive pulmonary disease) (Chronic) Hypertensive urgency (Acute) Hypoxia (Acute) CKD (chronic kidney disease) (Chronic) Ventricular tachyarrhythmia (Acute) Diaphragm injury (Chronic) Acute bacterial rhinosinusitis (Resolved) Bronchitis (Resolved) Community acquired bacterial pneumonia (Resolved) Shoulder sprain (Resolved) Malignant mesothelioma on hospice Past Surgical History (Last Reviewed 07/20/17 @ 11:16 by Isaiah Auguste MD) Bilateral shoulder surgery Permanent pacemaker Knee surgery Appendectomy Family History (Last Reviewed 07/20/17 @ 11:16 by Isaiah Auguste MD) :Leukemia, lymphoma, in siblings. deepak believes his mother with some type of cancer, and also had thyroid disease. His father of an unknown kind of cancer. His daughter has had lung cancer and some kind of cancer in her hip. Social History (Last Updated 07/20/17 @ 11:25 by Isaiah Auguste MD) Patient's former smoker no current alcohol use ablates with a walker lives at [facility] is on hospice for malignant mesothelioma Medical - H&P: Meds Home Medications Medication Instructions Recorded Confirmed Type Potassium Chloride [Klor-Con M10] 10 meq PO DAILY 10/17/15 07/20/17 History Docusate Sodium [Colace] 100 mg PO BID #0 cap 10/21/15 07/19/17 Rx Albuterol Sulfate [Ventolin] 2 puff INH Q4-6HP PRN #1 inhaler 08/13/16 07/20/17 Rx Warfarin [Coumadin] 5 mg PO DAILY 08/13/16 07/20/17 History Nitroglycerin 0.4 mg SL Q5MIN PRN #25 tab.subl 01/09/17 07/20/17 Rx CPAP #1 ea 05/02/17 07/20/17 Rx Folic Acid [FA-8] mg PO 06/30/17 History Dicyclomine [Bentyl] 10 mg PO QID #20 cap 07/19/17 07/20/17 Rx Metoprolol Succinate [Toprol Xl] 25 mg PO DAILY 07/19/17 07/20/17 History CPAP THERAPY #1 ea 07/20/17 07/20/17 Rx furosemide 40 mg tablet 40 mg PO DAILY #30 tab 07/20/17 07/20/17 Rx gemcitabine 1 gram intravenous 2,000 mg INTRAVESIC QWEEK each 07/20/17 07/20/17 History solution Allergies Allergy/AdvReac Type Severity Reaction Status Date / Time Penicillins Allergy Severe ANAPHYLAXIS Verified 03/30/19 07:43 morphine [MORPHINE] AdvReac Intermediate "BEEN Verified 03/30/19 07:43 ADDICTED 2X" Medical - H&P: Exam - Constitutional Vitals: Temp Pulse Resp BP Pulse Ox 99.1 F H 74 24 H 127/64 96 05/13/19 18:34 05/13/19 21:21 05/13/19 18:46 05/13/19 21:21 05/13/19 21:21 Exam: General: Alert, Awake, No acute Distress Eyes/N/T: EOMI, PEERL, DMM Head/Neck: neck supple, normocephalic atraumatic CV: RRR, No murmurs, normal s1/s2 Pulm: Clear b/l, no wheezing/rhonchi/rales Abd: soft, nontender, +BS x4 Ext: no clubbing/cyanosis/edema Neuro: Alert, no focal deficits, moves all extremities, CN 2-12 grossly intact, sensations intact b/l upper/lower Skin: warm/dry Medical - H&P: Reslt - Labs CBC & Chem 7: 05/13/19 21:30 05/13/19 21:30 - EKG Data EKG comments: 05/13/19 21:58 CT pelvis with left subcapital fracture CT head with moderate atrophy and chronic ischemic changes from remote cortical- based infarcts left temporal right occipital and scattered remote lacunar infarcts in basal ganglia deep frontal white Cervical spine with degenerative joint lung apices show pleural-based mass and a 3.4 cm mass noted as well which these were present on her film in September Medical - H&P: A/P - Narrative A/P Narrative: A: *Left hip fracture: *Syncope from likely Orthostatic hypotension vs Vasovagal: *COPD (2L NC @home): *ELIAN: *AFib: On warfarin and Toprol *Malignant mesothelioma: On hospice *Paralyzed left hemidiaphragm: * P: -Dr Mata for Ortho -Patient is high perioperative risk given his current state of health, however after discussion with patient and daughter the plan is to go ahead with surgery, understanding the risks. -Pending laboratory -Continue home oxygen and as needed nebs -IS -Continue home toprol with PRN IV Lopressor - -pt/ot -ppx: Warfarin held for surgery tomorrow follow-up INR, continue postop per Ortho DNR
[2019-05-13 22:09] LABS: Basophils # (Auto) 0 K/mcL (0.0-0.3); Basophils % (Auto) 0.3 % (0.0-2.0); Eosinophils # (Auto) 0.1 K/mcL (0.0-0.7); Granulocytes % (Auto) 73.5 % (38.0-78.0); Hematocrit 32.7 % (41.0-55.0); Hemoglobin 10.9 g/dL (13.5-16.5); Lymphocytes # (Auto) 1.1 K/mcL (1.5-4.8); Lymphocytes % (Auto) 16.5 % (15.5-49.0); Mean Cell Volume 86.4 fL (80.0-100.0); Mean Corpuscular HGB Conc 33.5 g/dL (31.0-36.0); Mean Platelet Volume 6.8 fL (7.4-10.4); Monocytes # (Auto) 0.6 K/mcL (0.1-0.9); Monocytes % (Auto) 8.7 % (1.0-12.0); Platelet Count 313 K/mcL (140-440); RBC 3.78 M/mcL (4.50-5.90); Red Cell Distribution Width 13.9 % (11.5-14.5); WBC 6.5 K/mcL (4.5-11.0)
[2019-05-13 22:19] LABS: INR 2.1 (0.9-1.1)
[2019-05-13 22:23] LABS: ALT/SGPT 6 U/l (0-40); AST/SGOT 8 U/l (0-37); Albumin 3.2 gm/dL (3.2-5.2); Alkaline Phosphatase 82 U/L (39-117); Bilirubin,Total 0.2 mg/dL (0.0-1.0); Blood Urea Nitrogen 19 mg/dl (8-23); Calcium 8.5 mg/dl (8.6-10.4); Carbon Dioxide 26 mmol/L (22-30); Chloride 103 mmol/L (96-108); Globulin 3.1 gm/dL (2.2-3.7); Glomerular Filtration Rate 44; Glucose 108 mg/dL (70-105)
[2019-05-13] MEDS ORDERED: BISACODYL 10 MG SUPP.RECT PR PRN (22:56)
[2019-05-13] MEDS ORDERED: IPRATROPIUM/ALBUTEROL 3 ML AMPUL.NEB NEB PRN (22:56)
[2019-05-13] MEDS ORDERED: PROCHLORPERAZINE 10 MG/2 ML VIAL IV PRN (22:56)
[2019-05-13] MEDS ORDERED: METOPROLOL TARTRATE 5 MG/5 ML VIAL IV PRN (22:56)
[2019-05-13] MEDS ORDERED: ACETAMINOPHEN 325 MG TABLET PO PRN (22:56)
[2019-05-13] MEDS ORDERED: ONDANSETRON 4 MG/2 ML VIAL IV PRN (22:56)
[2019-05-13] MEDS ORDERED: HYDROcodone/APAP 5/325MG TABLET PO ONE (23:05)
[2019-05-13] MEDS ORDERED: 0.9 % SODIUM CHLORIDE 1,000 ML IV SCH (23:30)
[2019-05-13] MEDS: 0.9 % SODIUM CHLORIDE 10 ML SYRINGE IV SCH (23:51)
[2019-05-14] MEDS ORDERED: ACETAMINOPHEN 1,000 MG/100 ML BOTTLE IV ONE ×2 (00:47→16:47)
[2019-05-14 01:26] LABS: Appearance,Urine CLEAR; Bilirubin,Urine NEG (NEG); Color,Urine YELLOW; Culture Indicated,Urine NO; Glucose,Urine (UA) NEGATIVE (NEG); Ketones,Urine NEG (NEG); Leukocyte Esterase,Urine NEG /uL (NEG); Nitrate,Urine NEG (NEG); Protein,Urine NEG (NEG); Specific Gravity,Urine 1.016 (1.000-1.035); Urine Blood NEG mg/dL (<0.03); Urobilinogen,Urine NEG (NEG)
[2019-05-14] MEDS: 0.9 % SODIUM CHLORIDE 10 ML SYRINGE IV SCH ×3 (04:10→22:33)
[2019-05-14 06:24] LABS: Basophils # (Auto) 0.1 K/mcL (0.0-0.3); Basophils % (Auto) 1.6 % (0.0-2.0); Eosinophils # (Auto) 0.1 K/mcL (0.0-0.7); Eosinophils % (Auto) 2.1 % (0.0-7.0); Hematocrit 33.2 % (41.0-55.0); Hemoglobin 11.5 g/dL (13.5-16.5); Lymphocytes # (Auto) 0.9 K/mcL (1.5-4.8); Lymphocytes % (Auto) 13.8 % (15.5-49.0); Mean Cell Volume 85.7 fL (80.0-100.0); Mean Corpuscular HGB Conc 34.6 g/dL (31.0-36.0); Monocytes # (Auto) 0.7 K/mcL (0.1-0.9); Monocytes % (Auto) 10.5 % (1.0-12.0); Platelet Count 301 K/mcL (140-440); RBC 3.88 M/mcL (4.50-5.90); Red Cell Distribution Width 13.1 % (11.5-14.5); WBC 6.6 K/mcL (4.5-11.0)
[2019-05-14 06:30] LABS: INR 1.9 (0.9-1.1); Prothrombin Time 21.6 sec (11.9-14.5)
[2019-05-14 06:52] LABS: ALT/SGPT 6 U/l (0-40); AST/SGOT 8 U/l (0-37); Albumin/Globulin Ratio 0.9 (1.0-2.3); Alkaline Phosphatase 79 U/L (39-117); Bilirubin,Direct < 0.2 mg/dL (0.0-0.3); Bilirubin,Total 0.3 mg/dL (0.0-1.0); Blood Urea Nitrogen 18 mg/dl (8-23); Calcium 8.6 mg/dl (8.6-10.4); Carbon Dioxide 21 mmol/L (22-30); Chloride 105 mmol/L (96-108); Globulin 3.5 gm/dL (2.2-3.7); Glomerular Filtration Rate 44; Glucose 94 mg/dL (70-105); Lactate Dehydrogenase 144 U/L (94-250); Phosphorous 2.5 mg/dL (2.7-4.5); Triglycerides 95 mg/dl (<150); Uric Acid 4.8 mg/dL (2.5-8.0)
--- NOTE | 2019-05-14 08:00 | XRay Report ---
CLINICAL INFORMATION: pre-op COMPARISON: 03/30/2019 FINDINGS: Mild cardiomegaly is unchanged. Mediastinum and pulmonary vessels are unremarkable. Large nodular pleural/parenchymal masses in the right upper and mid lung and moderate right pleural effusion show equivocal increase in size from the comparison x-ray approximately six weeks ago. History of mesothelioma acknowledged. Left lung is well expanded and clear. IMPRESSION: Large nodular pleural/ parenchymal masses in the right upper and mid lung and moderate right pleural effusion showing equivocal increase in size from comparison x-ray six weeks ago. History of mesothelioma acknowledged No acute disease Interpreted and Authenticated by: Daniel Selby 05/14/19
--- NOTE | 2019-05-14 08:03 | Internal Med Progress Note ---
Medical - PN: Subj Patient information: Note initiated : 05/14/19 at 7:54 am Service Date, if different from initiated Date: [] Patient: Mikey Harmon a 88 y/o M admitted on 05/13/19 for fall. Chief Complaint: [] Interval history: Mr. Harmon is a 88 year old M With malignant mesothelioma on hospice who resides at [facility] was eating dinner while sitting on his walker. Afterwards he got up to walk away and sounds like he passed out. Patient thinks he might of stumbled on walker but next thing he remembers on the ground people looking at them. He complained at that time of hip pain. History obtained from charts and family as well as patient although he is a bit of a poor historian. Vital signs are stable. He is on warfarin for H fibrillation. CT of the head was done which showed no hemorrhage. CT the pelvis showed a subcapital fracture of the left hip. Dr. Horton was contacted and plans for hip pinning in the morning per discussion with patient and daughter. Patient denies any current complaints including chest pain shortness of breath cough headache. Controlled hip pain. Laboratory work is currently pending 05/14 Poor sleep from pain left hip pain. Lumbar headache as well. Otherwise no overnight events or new complaints. Review of Systems: denies fever/chills/nausea/vomiting/chest or abdominal pain/cough/dyspnea/diarrhea. Otherwise see above. - Constitutional Vitals: Vital Signs Temp Pulse Resp BP Pulse Ox 98 F 72 20 155/83 96 05/14/19 07:22 05/14/19 07:22 05/14/19 07:22 05/14/19 07:22 05/14/19 07:22 Period Temp Pulse Resp BP Sys/[place]agan Pulse Ox Last 24 Hr 98 F-99.1 F 67-78 16-24 127-167/64-88 85-97 Intake and Output 05/13/19 05/14/19 05/14/19 21:59 05:59 13:59 Output Total 300 525 Balance -300 -525 Weight 77.111 kg 76.657 kg Intake & Output: Intake & Output 05/13/19 05/14/19 05/14/19 21:59 05:59 13:59 Output Total 300 525 Balance -300 -525 Weight 77.111 kg 76.657 kg Output: Void Amount 300 525 Other: Urine Appearance Clear Clear Urine Color Bright Yellow Pale Exam: General: Alert, Awake, No acute Distress Eyes/N/T: EOMI, Head/Neck: neck supple, CV: RRR, No murmurs, Pulm: Clear b/l, no wheezing/rhonchi/rales Abd: soft, nontender, +BS x4 Ext: no clubbing/cyanosis/edema Neuro: Alert, no focal deficits, moves all extremities, Skin: warm/dry Medical - PN: Obj Da - Labs CBC & Chem 7: 05/14/19 05:30 05/14/19 05:30 Labs: Abnormal Lab Results 05/14/19 05/14/19 05/14/19 05:30 05:30 05:30 RBC 3.88 L Hgb 11.5 L Hct 33.2 L MPV 7.0 L Lymph % (Auto) 13.8 L Lymph # (Auto) 0.9 L PT 21.6 H INR 1.9 H Carbon Dioxide 21 L Anion Gap Creatinine 1.4 H Glucose Calcium Phosphorus 2.5 L Albumin 3.0 L Albumin/Globulin Ratio 0.9 L 05/13/19 05/13/19 05/13/19 21:30 21:30 21:30 RBC 3.78 L Hgb 10.9 L Hct 32.7 L MPV 6.8 L Lymph % (Auto) Lymph # (Auto) 1.1 L PT 23.0 H INR 2.1 H Carbon Dioxide Anion Gap 6.0 L Creatinine 1.4 H Glucose 108 H Calcium 8.5 L Phosphorus Albumin Albumin/Globulin Ratio Meds: Medications Acetaminophen (Tylenol) 650 mg PO Q6HP PRN; Protocol PRN Reason: Per Pain Protocol/Fever > 101 Hydrocodone Bitart/Acetaminophen ([place] 5/325mg) 1 tab PO Q4HP PRN; Protocol PRN Reason: Per Pain Protocol Albuterol/Ipratropium (Duoneb) 3 ml NEB Q4HRT PRN PRN Reason: Bronchospasm Bisacodyl (Dulcolax) 10 mg SD Q2-3DAYS PRN PRN Reason: Constipation Docusate Sodium (Colace) 100 mg PO BID [place] Sodium Chloride (Sodium Chloride 0.9%) 1,000 mls @ 75 mls/hr IV .[id number] [place] Stop: 05/14/19 12:49 Last Admin: 05/13/19 23:50 Dose: 75 mls/hr Documented by: Acetaminophen (Ofirmev) 650 mg in 65 mls @ 130 mls/hr IV Q6HP PRN; Protocol PRN Reason: PAIN/FEVER > 101 Metoprolol Tartrate (Lopressor) 5 mg IV Q2HP PRN PRN Reason: Tachyarrhythmias HR>110 Morphine Sulfate (Morphine) 0 mg IV Q3HP PRN; Protocol PRN Reason: Per Pain Protocol Last Admin: 05/14/19 07:46 Dose: 1 mg Documented by: Ondansetron HCl (Zofran) 4 mg IV Q6HP PRN PRN Reason: Nausea And Vomiting Prochlorperazine (Compazine) 5 mg IV Q4HP PRN PRN Reason: Nausea And Vomiting Sodium Chloride (Saline Flush) 10 ml IV Q8 [facility] Last Admin: 05/14/19 04:10 Dose: Not Given Documented by: Medical - PN: A/P - Time Spent With Patient Total time spent is greater than 50% in coordination of care (as documented) at patient's floor/unit and/or counseling patient: - Narrative A/P Narrative: A: *Left hip fracture: *Syncope from likely Orthostatic hypotension vs Vasovagal: *COPD (2L NC @home): *ELIAN: *AFib: On warfarin and Toprol *Malignant mesothelioma: On hospice *Paralyzed left hemidiaphragm: *CKD III: *Anemia, chronic: P: -Dr Mata for Ortho this afternoon -reverse INR -Patient is high perioperative risk given his current state of health, however after discussion with patient and daughter the plan is to go ahead with surgery, understanding the risks. -Continue home oxygen and as needed nebs -IS -Continue home toprol with PRN IV Lopressor -pt/ot -ppx: Warfarin held for surgery tomorrow follow-up INR, continue postop per Ortho
[2019-05-14] MEDS ORDERED: 0.9 % SODIUM CHLORIDE 250 ML IV SCH (08:15)
[2019-05-14] MEDS ORDERED: PHYTONADIONE 10 MG/ML AMPUL PO ONE (08:30)
[2019-05-14] MEDS ORDERED: DOCUSATE SODIUM 100 MG CAPSULE PO SCH (09:00)
[2019-05-14] MEDS ORDERED: CYCLOBENZAPRINE 10 MG TABLET PO PRN (09:02)
[2019-05-14] MEDS: busPIRone 5 MG TABLET PO SCH ×3 (10:13→22:32)
[2019-05-14] MEDS: FUROSEMIDE 20 MG TABLET PO SCH (10:24)
[2019-05-14] MEDS: METOPROLOL SUCCINATE 25 MG TAB.XL.24H PO SCH (10:24)
[2019-05-14] MEDS: OMEPRAZOLE 20 MG CAPSULE PO SCH (10:25)
[2019-05-14] MEDS: ACETAMINOPHEN 650 MG/65 ML BOTTLE IV PRN ×2 (11:25→22:53)
[2019-05-14 14:41] LABS: POC INR 1.2 (0.9-1.2); POC Pro Time 14.8 sec (11.9-14.5)
[2019-05-14] MEDS ORDERED: SCOPOLAMINE 1 PATCH PATCH TOPICAL ONE (14:54)
[2019-05-14] MEDS ORDERED: fentaNYL 100 MCG/2 ML VIAL IV ONE (15:45)
[2019-05-14] MEDS ORDERED: LIDOCAINE HCL/PF 100 MG/5 ML SYRINGE IV ONE (15:45)
[2019-05-14] MEDS ORDERED: ONDANSETRON 4 MG/2 ML VIAL IV ONE (15:45)
[2019-05-14] MEDS ORDERED: DEXAMETHASONE 10 MG/ML VIAL IV ONE (15:45)
[2019-05-14] MEDS ORDERED: PROPOFOL 200 MG/20 ML VIAL IV ONE (15:45)
[2019-05-14] MEDS ORDERED: KETAMINE 100 MG/ML ML IV ONE (15:45)
[2019-05-14] MEDS ORDERED: ceFAZolin 2 GM in DEXTROSE 5% IN WATER 50 ML IV SCH (16:00)
[2019-05-14] MEDS ORDERED: GENTAMICIN SULFATE 800 MG/20 ML VIAL IR ONE (16:45)
[2019-05-14] MEDS ORDERED: FLUMAZENIL 0.1 MG/ML ML IV PRN (16:47)
[2019-05-14] MEDS ORDERED: IPRATROPIUM/ALBUTEROL 3 ML AMPUL.NEB NEB PRN (16:47)
[2019-05-14] MEDS ORDERED: LACTATED RINGERS 250 ML IV PRN (16:47)
[2019-05-14] MEDS ORDERED: PROMETHAZINE 25 MG/ML VIAL IV PRN (16:47)
[2019-05-14] MEDS ORDERED: NALOXONE HCL 0.4 MG/ML VIAL IV PRN (16:47)
[2019-05-14] MEDS ORDERED: diphenhydrAMINE 50 MG/ML VIAL IV PRN (16:47)
[2019-05-14] MEDS ORDERED: ONDANSETRON 4 MG/2 ML VIAL IV PRN (16:47)
--- NOTE | 2019-05-14 16:56 | Brief Operative Note ---
Date of procedure: 05/14/19 Pre-op diagnosis: Left hip fracture Post-op diagnosis: same Procedure: Left hip cemented rajat arthroplasty Grafts/Implants: Yes Anesthesia: ELISABETHA Surgeon: Chacho Mata Pipe Threading Machine Operator: Geraldo Romero Estimated blood loss (cc): 150 Tourniquet Time (Minutes): 0 Specimens Removed/Pathology: none sent Condition: stable Disposition: PACU
[2019-05-14] MEDS ORDERED: LACTATED RINGERS 1,000 ML IV SCH (17:00)
[2019-05-14] MEDS: fentaNYL 100 MCG/2 ML VIAL IV PRN ×4 (17:15→17:35)
[2019-05-14] MEDS ORDERED: CLINDAMYCIN 600 MG in DEXTROSE 5% IN WATER 50 ML IV SCH (17:15)
[2019-05-14] MEDS: MEPERIDINE 25 MG/ML SYRINGE IV PRN ×2 (17:17→17:41)
[2019-05-14] MEDS ORDERED: POLYETHYLENE GLYCOL 3350 17 GM PACKET PO PRN (17:21)
[2019-05-14] MEDS ORDERED: BISACODYL 10 MG SUPP.RECT PR PRN (17:21)
[2019-05-14] MEDS ORDERED: TRANEXAMIC ACID 1,000 MG/10 ML VIAL IV ONE (17:21)
[2019-05-14] MEDS ORDERED: FLEETS ADULT ENEMA PR PRN (17:21)
[2019-05-14] MEDS ORDERED: BENZOCAINE/MENTHOL 1 LOZENGE PO PRN (17:21)
[2019-05-14] MEDS ORDERED: MAGNESIUM HYDROXIDE 30 ML ORAL.SUSP PO PRN (17:21)
[2019-05-14] MEDS ORDERED: TEMAZEPAM 15 MG CAPSULE PO PRN (17:21)
[2019-05-14] MEDS ORDERED: ACETAMINOPHEN 325 MG TABLET PO PRN (17:21)
--- NOTE | 2019-05-14 18:11 | XRay Report ---
CLINICAL INFORMATION: Post-Op Total Hip COMPARISON: None. FINDINGS: Left hip prostheses is anatomically aligned. No osseous abnormalities. Minimal degeneration both SI and right hip noted. IMPRESSION: Left hip prostheses anatomically aligned. Interpreted and Authenticated by: Daniel Selby 05/14/19
[2019-05-14] MEDS: KETOROLAC 15 MG/ML VIAL IV PRN (18:25)
[2019-05-14] MEDS: HYDROmorphone 2 MG/ML VIAL IV PRN (18:28)
[2019-05-14] MEDS: LACTATED RINGERS 1,000 ML IV SCH (18:42)
[2019-05-14] MEDS: ONDANSETRON 4 MG/2 ML VIAL IV PRN (20:39)
[2019-05-14] MEDS ORDERED: LORazepam 1 MG TABLET PO SCH (21:00)
[2019-05-14] MEDS: SENNOSIDES 1 TABLET PO SCH (22:33)
[2019-05-14] MEDS: DOCUSATE SODIUM 100 MG CAPSULE PO SCH (22:33)
[2019-05-14] MEDS: TAMSULOSIN 0.4 MG CAPSULE PO SCH (22:33)
[2019-05-14] MEDS: ceFAZolin 1 GM VIAL IV SCH (23:38)
[2019-05-15] MEDS: KETOROLAC 15 MG/ML VIAL IV PRN ×3 (02:03→19:32)
[2019-05-15] MEDS: ONDANSETRON 4 MG/2 ML VIAL IV PRN ×2 (03:40→19:15)
[2019-05-15] MEDS: oxyCODONE/APAP 5/325MG TABLET PO PRN ×2 (03:40→08:09)
[2019-05-15] MEDS: LACTATED RINGERS 1,000 ML IV SCH ×3 (05:09→19:15)
[2019-05-15] MEDS: 0.9 % SODIUM CHLORIDE 10 ML SYRINGE IV SCH ×3 (06:27→21:10)
[2019-05-15 06:46] LABS: Basophils # (Auto) 0 K/mcL (0.0-0.3); Basophils % (Auto) 0.3 % (0.0-2.0); Eosinophils # (Auto) 0 K/mcL (0.0-0.7); Eosinophils % (Auto) 0 % (0.0-7.0); Granulocytes % (Auto) 83.1 % (38.0-78.0); Hematocrit 30.7 % (41.0-55.0); Hemoglobin 10.4 g/dL (13.5-16.5); Lymphocytes # (Auto) 0.8 K/mcL (1.5-4.8); Mean Cell Volume 86.1 fL (80.0-100.0); Mean Corpuscular HGB Conc 33.8 g/dL (31.0-36.0); Monocytes # (Auto) 0.5 K/mcL (0.1-0.9); Monocytes % (Auto) 6.6 % (1.0-12.0); Platelet Count 286 K/mcL (140-440); RBC 3.57 M/mcL (4.50-5.90); WBC 7.6 K/mcL (4.5-11.0)
[2019-05-15 07:09] LABS: INR 1.4 (0.9-1.1)
[2019-05-15 07:18] LABS: ALT/SGPT 6 U/l (0-40); AST/SGOT 10 U/l (0-37); Albumin 2.8 gm/dL (3.2-5.2); Albumin/Globulin Ratio 0.9 (1.0-2.3); Alkaline Phosphatase 66 U/L (39-117); Bilirubin,Direct < 0.2 mg/dL (0.0-0.3); Bilirubin,Total 0.2 mg/dL (0.0-1.0); Blood Urea Nitrogen 22 mg/dl (8-23); Calcium 8.6 mg/dl (8.6-10.4); Carbon Dioxide 23 mmol/L (22-30); Chloride 103 mmol/L (96-108); Glomerular Filtration Rate 44; Glucose 125 mg/dL (70-105); Lactate Dehydrogenase 140 U/L (94-250); Phosphorous 3.9 mg/dL (2.7-4.5); Triglycerides 82 mg/dl (<150); Uric Acid 5.5 mg/dL (2.5-8.0)
[2019-05-15] MEDS: OMEPRAZOLE 20 MG CAPSULE PO SCH (07:22)
[2019-05-15] MEDS: ceFAZolin 1 GM VIAL IV SCH (07:29)
--- NOTE | 2019-05-15 07:31 | Operative Note ---
DATE OF OPERATION: 05/14/2019 PREOPERATIVE DIAGNOSIS: Left femoral neck fracture, displaced. POSTOPERATIVE DIAGNOSIS: Left femoral neck fracture, displaced. PROCEDURE: Left hip cemented hemiarthroplasty. SURGEON: Chacho Mata MD GASOLINE SERVICE ATTENDANT: Geraldo Romero PA-C. This provider's expertise and technical skill were required throughout the case. The PA assisted with preoperative coordination, intraoperative retraction, wound closure, dressing and splint application, as well as postoperative documentation and care coordination. COMPLICATIONS: None. ESTIMATED BLOOD LOSS: 150 mL DESCRIPTION OF PROCEDURE: The patient was brought to the operating room and put to sleep with general LMA anesthesia. Once asleep, he was turned into a right lateral position. Once this was done, we sterilely prepped and draped in the left hip in the right lateral position. Once the left hip was sterilely prepped, timeout was performed confirming the operative site by initials, consent form and x-rays. We then made a superior approach to the hip with a 4-inch incision, dissected through the fascial layer, placed a Charnley retractor and then we were able to make the neck cut and removed the fractured ball. Once done, we then removed the seminal ligament into the joint; the joint condition was in good repair. We then broached up to the size 6 stem size with a neutral neck length, which fit very nicely. We cemented into place a size 6 stem with a 12 mm distal centralizer and canal restrictor. Once this was done the stem was cemented into place and we were able to hold the stem in 15 degrees of anteversion, reduced a 54 mm ball with a neutral neck length, very stable. Leg lengths were recreated. We irrigated thoroughly and then closed the fascial layer with #1 Stratafix, closed the skin with 2-0 Vicryl and ana. The patient tolerated this well. There was no complication. RBH:valente Job ID: [id number] Doc ID: [id number] Chacho Mata MD
--- NOTE | 2019-05-15 07:39 | Internal Med Progress Note ---
Medical - PN: Subj Patient information: Note initiated : 05/15/19 at 7:36 am Service Date, if different from initiated Date: [] Patient: Mikey Harmon a 88 y/o M admitted on 05/13/19 for fall. Chief Complaint: [] Interval history: Mr. 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 Afterwards he got up to walk away and sounds like he passed out. Patient thinks he might of stumbled on walker but next thing he remembers on the ground people looking at them. He complained at that time of hip pain. History obtained from charts and family as well as patient although he is a bit of a poor historian. Vital signs are stable. He is on warfarin for H fibrillation. CT of the head was done which showed no hemorrhage. CT the pelvis showed a subcapital fracture of the left hip. Dr. Horton was contacted and plans for hip pinning in the morning per discussion with patient and daughter. Patient denies any current complaints including chest pain shortness of breath cough headache. Controlled hip pain. Laboratory work is currently pending 05/14 Poor sleep from pain left hip pain. Lumbar headache as well. Otherwise no overnight events or new complaints. 05/15 Complains of pain when walking. Complains of left ankle pain. Otherwise no new complaints overnight events. Review of Systems: denies fever/chills/nausea/vomiting/chest or abdominal pain/cough/dyspnea/diarrhea. Otherwise see above. - Constitutional Vitals: Vital Signs Temp Pulse Resp BP Pulse Ox 98.2 F 79 20 133/74 92 05/15/19 03:45 05/15/19 03:45 05/15/19 03:45 05/15/19 03:45 05/15/19 03:45 Period Temp Pulse Resp BP Sys/Fagan Pulse Ox Last 24 Hr 96.9 F-99.2 F 69-88 16-26 132-175/73-109 87-95 Intake and Output 05/14/19 05/15/19 05/15/19 21:59 05:59 13:59 Intake Total 600 1485 Output Total 350 200 200 Balance 250 1285 -200 Weight 76.657 kg 78.698 kg Intake & Output: Intake & Output 05/14/19 05/15/19 05/15/19 21:59 05:59 13:59 Intake Total 600 1485 Output Total 350 200 200 Balance 250 1285 -200 Weight 76.657 kg 78.698 kg Intake: IV 100 1065 Lactated Ringers 1,000 ml @ 100 1000 mls/hr IV .Q10H [facility] Rx#: [id number] Oral 420 IV - Manual Only 500 Output: Void Amount 350 200 200 Other: Urine Appearance Clear Urine Color Bright Yellow Dark Yellow Urine Odor Normal Exam: General: Alert, Awake, No acute Distress Eyes/N/T: EOMI, Head/Neck: neck supple, CV: RRR, No murmurs, Pulm: Clear b/l, no wheezing/rhonchi/rales Abd: soft, nontender, +BS x4 Ext: no clubbing/cyanosis/edema Neuro: Alert, no focal deficits, moves all extremities, Skin: warm/dry Medical - PN: Obj Da - Labs CBC & Chem 7: 05/15/19 05:20 05/15/19 05:20 Labs: Abnormal Lab Results 05/15/19 05/15/19 05/15/19 05:20 05:20 05:20 RBC 3.57 L Hgb 10.4 L Hct 30.7 L MPV 7.0 L Gran % 83.1 H Lymph % (Auto) 10.0 L Lymph # (Auto) 0.8 L POC PT PT 17.0 H INR 1.4 H Carbon Dioxide Anion Gap Creatinine 1.4 H Glucose 125 H Calcium Phosphorus Total Protein 5.8 L Albumin 2.8 L Albumin/Globulin Ratio 0.9 L 05/14/19 05/14/19 05/14/19 14:37 05:30 05:30 RBC Hgb Hct MPV Gran % Lymph % (Auto) Lymph # (Auto) POC PT 14.8 H PT 21.6 H INR 1.9 H Carbon Dioxide 21 L Anion Gap Creatinine 1.4 H Glucose Calcium Phosphorus 2.5 L Total Protein Albumin 3.0 L Albumin/Globulin Ratio 0.9 L 05/14/19 05/13/19 05/13/19 05:30 21:30 21:30 RBC 3.88 L Hgb 11.5 L Hct 33.2 L MPV 7.0 L Gran % Lymph % (Auto) 13.8 L Lymph # (Auto) 0.9 L POC PT PT 23.0 H INR 2.1 H Carbon Dioxide Anion Gap 6.0 L Creatinine 1.4 H Glucose 108 H Calcium 8.5 L Phosphorus Total Protein Albumin Albumin/Globulin Ratio 05/13/19 21:30 RBC 3.78 L Hgb 10.9 L Hct 32.7 L MPV 6.8 L Gran % Lymph % (Auto) Lymph # (Auto) 1.1 L POC PT PT INR Carbon Dioxide Anion Gap Creatinine Glucose Calcium Phosphorus Total Protein Albumin Albumin/Globulin Ratio Meds: Medications Acetaminophen (Tylenol) 650 mg PO Q6HP PRN; Protocol PRN Reason: Per Pain Protocol/Fever > 101 Hydrocodone Bitart/Acetaminophen ([place] 5/325mg) 1 tab PO Q4HP PRN; Protocol PRN Reason: Per Pain Protocol Albuterol/Ipratropium (Duoneb) 3 ml NEB Q4HRT PRN PRN Reason: Bronchospasm Bisacodyl (Dulcolax) 10 mg MD Q2-3DAYS PRN PRN Reason: Constipation Buspirone HCl (Buspar) 10 mg PO BID [facility] Last Admin: 05/14/19 22:32 Dose: 10 mg Documented by: Cefazolin Sodium (Ancef) 2 gm IV Q8H [facility]; Protocol Stop: 05/15/19 08:01 Last Admin: 05/15/19 07:29 Dose: 2 gm Documented by: Cyclobenzaprine HCl (Flexeril) 10 mg PO Q6HP PRN PRN Reason: Muscle Spasm Docusate Sodium (Colace) 100 mg PO BID [facility] Last Admin: 05/14/19 22:33 Dose: 100 mg Documented by: Furosemide (Lasix) 20 mg PO DAILY [facility] Last Admin: 05/14/19 10:24 Dose: Not Given Documented by: Hydromorphone HCl (Dilaudid) 0 mg IV Q2HP PRN PRN Reason: PAIN LEVEL > 6 Last Admin: 05/14/19 18:28 Dose: 0.2 mg Documented by: Acetaminophen (Ofirmev) 650 mg in 65 mls @ 130 mls/hr IV Q6HP PRN; Protocol PRN Reason: PAIN/FEVER > 101 Last Infusion: 05/14/19 23:38 Dose: Infused Documented by: Lactated Ringer's (Lactated Ringers) 1,000 mls @ 100 mls/hr IV .Q10H [facility] Last Admin: 05/15/19 05:09 Dose: 100 mls/hr Documented by: Ketorolac Tromethamine (Toradol) 15 mg IV Q6HP PRN PRN Reason: Pain Stop: 05/16/19 17:21 Last Admin: 05/15/19 02:03 Dose: 15 mg Documented by: Lorazepam (Ativan) 1 mg PO QPM [facility] Last Admin: 05/14/19 22:32 Dose: 1 mg Documented by: Magnesium Hydroxide (Milk Of Magnesia) 30 ml PO BIDP PRN PRN Reason: Constipation Metoprolol Succinate (Toprol Xl) 25 mg PO DAILY [facility] Last Admin: 05/14/19 10:24 Dose: Not Given Documented by: Metoprolol Tartrate (Lopressor) 5 mg IV Q2HP PRN PRN Reason: Tachyarrhythmias HR>110 Morphine Sulfate (Morphine) 0 mg IV Q3HP PRN; Protocol PRN Reason: Per Pain Protocol Last Admin: 05/14/19 12:02 Dose: 2 mg Documented by: Omeprazole (Prilosec) 40 mg PO ACB [facility] Last Admin: 05/15/19 07:22 Dose: 40 mg Documented by: Ondansetron HCl (Zofran) 4 mg IV Q6HP PRN PRN Reason: Nausea And Vomiting Last Admin: 05/14/19 09:50 Dose: 4 mg Documented by: Ondansetron HCl (Zofran) 4 mg IV Q4HP PRN PRN Reason: Nausea And Vomiting Last Admin: 05/15/19 03:40 Dose: 4 mg Documented by: Oxycodone/Acetaminophen (Percocet 5-325 Mg) 0 tab PO Q4HP PRN PRN Reason: PAIN LEVEL 3-6 Last Admin: 05/15/19 03:40 Dose: 1 tab Documented by: Polyethylene Glycol (Miralax) 17 gm PO DAILYP PRN PRN Reason: Constipation Prochlorperazine (Compazine) 5 mg IV Q4HP PRN PRN Reason: Nausea And Vomiting Senna (Senokot) 2 tab PO HS [facility] Last Admin: 05/14/19 22:33 Dose: 2 tab Documented by: Sodium Biphosphate/Sodium Phosphate (Fleets Adult) 1 dose MD Q3-4DAYS PRN PRN Reason: Constipation Sodium Chloride (Saline Flush) 10 ml IV Q8 [facility] Last Admin: 05/15/19 06:27 Dose: Not Given Documented by: Tamsulosin HCl (Flomax) 0.4 mg PO HS [facility] Last Admin: 05/14/19 22:33 Dose: 0.4 mg Documented by: Temazepam (Restoril) 15 mg PO HSP PRN PRN Reason: Insomnia Throat Lozenges (Cepacol) 1 lozenge PO PRN PRN PRN Reason: Sore Throat Medical - PN: A/P - Time Spent With Patient Total time spent is greater than 50% in coordination of care (as documented) at patient's floor/unit and/or counseling patient: - Narrative A/P Narrative: A: *Left hip fracture: s/p ORIF (05/14) *Syncope from likely Orthostatic hypotension vs Vasovagal: *COPD (2L NC @home): *ELIAN: *AFib: On warfarin and Toprol *Malignant mesothelioma: On hospice *Paralyzed left hemidiaphragm: *CKD III: *Anemia, chronic: *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 -wound care -Continue home oxygen and as needed nebs -IS -L ankle xray -Continue home toprol with PRN IV Lopressor -pt/ot -ppx: restart Warfarin, per pharm
--- NOTE | 2019-05-15 07:45 | Orthopedic Progress Note ---
Subjective Patient information: Note initiated : 05/15/19 at 7:44 am Service Date, if different from initiated Date: [] Patient: Mikey Harmon 88 y/o M admitted on 05/13/19 for fall. Chief Complaint: [co pain of the left ankle and is eating and some post op pain in the left hip with standing] Objective Vital signs: Vital Signs Temp Pulse Pulse Resp BP Pulse Ox 05/15/19 03:45 98.2 F 79 20 133/74 92 05/14/19 23:34 97.4 F 81 20 134/77 92 05/14/19 22:12 74 18 93 05/14/19 21:59 77 132/79 91 05/14/19 20:59 73 139/73 93 05/14/19 20:19 94 05/14/19 19:59 88 147/82 87 L 05/14/19 19:29 73 139/77 90 05/14/19 18:59 69 137/76 89 L 05/14/19 18:44 76 141/80 90 05/14/19 18:30 90 05/14/19 18:29 82 148/82 88 L 05/14/19 18:14 76 139/75 89 L 05/14/19 17:59 75 143/79 87 L 05/14/19 17:45 98.4 F 83 20 144/76 91 05/14/19 17:35 96.9 F L 87 22 153/77 91 05/14/19 17:20 98.3 F 83 22 169/78 93 05/14/19 17:15 81 26 H 175/89 91 05/14/19 17:10 81 21 167/91 92 05/14/19 17:06 99.2 F H 87 16 171/109 89 L 05/14/19 15:14 77 95 05/14/19 15:11 24 H 05/14/19 14:17 98.7 F 74 20 94 05/14/19 13:10 98.3 F 72 20 160/80 93 05/14/19 13:00 97.9 F 71 20 163/83 94 05/14/19 12:00 98.2 F 72 16 145/77 91 Intake and Output 05/14/19 05/15/19 05/15/19 21:59 05:59 13:59 Intake Total 600 1485 Output Total 350 200 200 Balance 250 1285 -200 Intake: IV 100 1065 Lactated Ringers 1,000 ml @ 100 1000 mls/hr IV .Q10H [facility] Rx#: [id number] Oral 420 IV - Manual Only 500 Output: Void Amount 350 200 200 Other: Urine Appearance Clear Urine Color Bright Yellow Dark Yellow Urine Odor Normal Weight 169 lb 173 lb 8 oz Intake & Output: Intake & Output 05/14/19 05/15/19 05/15/19 21:59 05:59 13:59 Intake Total 600 1485 Output Total 350 200 200 Balance 250 1285 -200 Weight 169 lb 173 lb 8 oz Intake: IV 100 1065 Lactated Ringers 1,000 ml @ 100 1000 mls/hr IV .Q10H [facility] Rx#: [id number] Oral 420 IV - Manual Only 500 Output: Void Amount 350 200 200 Other: Urine Appearance Clear Urine Color Bright Yellow Dark Yellow Urine Odor Normal Incision: Yes healing Incision clean and dry: Yes Dressing: Yes clean Weight bearing status: full Neurological exam IM: Yes oriented X3, Yes neurovascular intact Extremities exam IM: Yes Foot pink and warm - Periperhal Pulses Peripheral pulses: 1+: dorsalis pedis (L), dorsalis pedis (R) - Labs CBC & BMP: 05/15/19 05:20 05/15/19 05:20 Labs: Orthopedic Labs 05/15/19 05/14/19 05/14/19 05:20 14:37 05:30 POC PT 14.8 H PT 17.0 H 21.6 H POC INR 1.2 INR 1.4 H 1.9 H 05/13/19 21:30 POC PT PT 23.0 H POC INR INR 2.1 H 05/15/19 05/14/19 05/13/19 05:20 05:30 21:30 Hgb 10.4 L 11.5 L 10.9 L Hct 30.7 L 33.2 L 32.7 L
--- NOTE | 2019-05-15 08:49 | XRay Report ---
CLINICAL INFORMATION: Trauma COMPARISON: None. FINDINGS: Small remote avulsion fractures of the tips of both medial and lateral malleolus. Tibia partially united. No acute fracture identified. The ankle mortise and talocalcaneal joints are normal in width and alignment without arthritic change. Minimal diffuse soft tissue swelling noted. IMPRESSION: No acute fracture however there are small remote avulsion fractures off the medial and lateral malleolus and talus which appear to be partially united. Interpreted and Authenticated by: Daniel eSlby 05/15/19
[2019-05-15] MEDS: METOPROLOL SUCCINATE 25 MG TAB.XL.24H PO SCH (08:59)
[2019-05-15] MEDS: busPIRone 5 MG TABLET PO SCH ×2 (08:59→21:09)
[2019-05-15] MEDS: FUROSEMIDE 20 MG TABLET PO SCH (08:59)
[2019-05-15] MEDS: DOCUSATE SODIUM 100 MG CAPSULE PO SCH ×2 (08:59→21:09)
[2019-05-15] MEDS ORDERED: fentaNYL 50 MCG PATCH TOPICAL SCH (10:00)
[2019-05-15] MEDS: ACETAMINOPHEN 650 MG/65 ML BOTTLE IV PRN (11:06)
[2019-05-15] MEDS: HYDROmorphone 2 MG/ML VIAL IV PRN (11:06)
[2019-05-15] MEDS ORDERED: WARFARIN 5 MG TABLET PO SCH (14:00)
[2019-05-15] MEDS ORDERED: LORazepam 2 MG/ML VIAL IV PRN (17:08)
[2019-05-15] MEDS: SENNOSIDES 1 TABLET PO SCH (21:09)
[2019-05-15] MEDS: LORazepam 2 MG/ML VIAL IV SCH (21:09)
[2019-05-15] MEDS: TAMSULOSIN 0.4 MG CAPSULE PO SCH (21:09)
[2019-05-15] MEDS: HYDROcodone/APAP 5/325MG TABLET PO PRN (23:49)
[2019-05-16] MEDS: KETOROLAC 15 MG/ML VIAL IV PRN (03:02)
[2019-05-16] MEDS: OMEPRAZOLE 20 MG CAPSULE PO SCH (07:13)
[2019-05-16 08:31] LABS: INR 1.3 (0.9-1.1)
--- NOTE | 2019-05-16 08:55 | XRay Report ---
CLINICAL INFORMATION: fall and pain COMPARISON: None. FINDINGS: No fracture identified. Joint spaces are normal in width and alignment. There is moderate posterior periarticular soft tissue tissue swelling IMPRESSION: No fracture - moderate posterior periarticular soft tissue swelling Interpreted and Authenticated by: Daniel Selby 05/16/19
[2019-05-16] MEDS: FUROSEMIDE 20 MG TABLET PO SCH (09:10)
[2019-05-16] MEDS: busPIRone 5 MG TABLET PO SCH (09:10)
[2019-05-16] MEDS: DOCUSATE SODIUM 100 MG CAPSULE PO SCH (09:10)
[2019-05-16] MEDS: LORazepam 2 MG/ML VIAL IV SCH (09:10)
[2019-05-16] MEDS: METOPROLOL SUCCINATE 25 MG TAB.XL.24H PO SCH (09:10)
--- NOTE | 2019-05-16 09:24 | Internal Med Progress Note ---
Medical - PN: Subj Patient information: Note initiated : 05/16/19 at 9:22 am Service Date, if different from initiated Date: [] Patient: Mikey Harmon a 88 y/o M admitted on 05/13/19 for fall. Chief Complaint: [] Interval history: Mr. 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 Afterwards he got up to walk away and sounds like he passed out. Patient thinks he might of stumbled on walker but next thing he remembers on the ground people looking at them. He complained at that time of hip pain. History obtained from charts and family as well as patient although he is a bit of a poor historian. Vital signs are stable. He is on warfarin for H fibrillation. CT of the head was done which showed no hemorrhage. CT the pelvis showed a subcapital fracture of the left hip. Dr. Horton was contacted and plans for hip pinning in the morning per discussion with patient and daughter. Patient denies any current complaints including chest pain shortness of breath cough headache. Controlled hip pain. Laboratory work is currently pending 05/14 Poor sleep from pain left hip pain. Lumbar headache as well. Otherwise no overnight events or new complaints. 05/15 Complains of pain when walking. Complains of left ankle pain. Otherwise no new complaints overnight events. 05/16 No overnight events. Dizzy short of breath when he exerts himself but has no complaints. Review of Systems: denies fever/chills/nausea/vomiting/chest or abdominal pain/cough/dyspnea/diarrhea. Otherwise see above. - Constitutional Vitals: Vital Signs Temp Pulse Resp BP Pulse Ox 97.6 F 74 22 143/68 91 05/16/19 07:44 05/16/19 07:44 05/16/19 07:44 05/16/19 07:44 05/16/19 07:44 Period Temp Pulse Resp BP Sys/Fagan Pulse Ox Last 24 Hr 97.5 F-98.3 F 74-80 20-24 119-143/66-72 90-94 Intake and Output 05/15/19 05/16/19 05/16/19 21:59 05:59 13:59 Intake Total 1480 300 Output Total 250 550 180 Balance 1230 -250 -180 Weight 78.245 kg Intake & Output: Intake & Output 05/15/19 05/16/19 05/16/19 21:59 05:59 13:59 Intake Total 1480 300 Output Total 250 550 180 Balance 1230 -250 -180 Weight 78.245 kg Intake: IV 1000 Lactated Ringers 1,000 ml @ 100 1000 mls/hr IV .Q10H [facility] Rx#: [id number] Oral 480 300 Output: Void Amount 250 550 180 Other: Urine Appearance Clear Urine Color Straw Urine Odor Normal Exam: General: Alert, Awake, No acute Distress Eyes/N/T: EOMI, Head/Neck: neck supple, CV: RRR, No murmurs, Pulm: Clear b/l, no wheezing/rhonchi/rales Abd: soft, nontender, +BS x4 Ext: no clubbing/cyanosis/edema Neuro: Alert, no focal deficits, moves all extremities, Skin: warm/dry Medical - PN: Obj Da - Labs CBC & Chem 7: 05/15/19 05:20 05/15/19 05:20 Labs: Abnormal Lab Results 05/16/19 05/15/19 05/15/19 07:58 05:20 05:20 RBC Hgb Hct MPV Gran % Lymph % (Auto) Lymph # (Auto) POC PT PT 16.0 H 17.0 H INR 1.3 H 1.4 H Carbon Dioxide Anion Gap Creatinine 1.4 H Glucose 125 H Calcium Phosphorus Total Protein 5.8 L Albumin 2.8 L Albumin/Globulin Ratio 0.9 L 05/15/19 05/14/19 05/14/19 05:20 14:37 05:30 RBC 3.57 L Hgb 10.4 L Hct 30.7 L MPV 7.0 L Gran % 83.1 H Lymph % (Auto) 10.0 L Lymph # (Auto) 0.8 L POC PT 14.8 H PT INR Carbon Dioxide 21 L Anion Gap Creatinine 1.4 H Glucose Calcium Phosphorus 2.5 L Total Protein Albumin 3.0 L Albumin/Globulin Ratio 0.9 L 05/14/19 05/14/19 05/13/19 05:30 05:30 21:30 RBC 3.88 L Hgb 11.5 L Hct 33.2 L MPV 7.0 L Gran % Lymph % (Auto) 13.8 L Lymph # (Auto) 0.9 L POC PT PT 21.6 H INR 1.9 H Carbon Dioxide Anion Gap 6.0 L Creatinine 1.4 H Glucose 108 H Calcium 8.5 L Phosphorus Total Protein Albumin Albumin/Globulin Ratio 05/13/19 05/13/19 21:30 21:30 RBC 3.78 L Hgb 10.9 L Hct 32.7 L MPV 6.8 L Gran % Lymph % (Auto) Lymph # (Auto) 1.1 L POC PT PT 23.0 H INR 2.1 H Carbon Dioxide Anion Gap Creatinine Glucose Calcium Phosphorus Total Protein Albumin Albumin/Globulin Ratio Meds: Medications Acetaminophen (Tylenol) 650 mg PO Q6HP PRN; Protocol PRN Reason: Per Pain Protocol/Fever > 101 Hydrocodone Bitart/Acetaminophen ([place] 5/325mg) 1 tab PO Q4HP PRN; Protocol PRN Reason: Per Pain Protocol Last Admin: 05/15/19 23:49 Dose: 1 tab Documented by: Albuterol/Ipratropium (Duoneb) 3 ml NEB Q4HRT PRN PRN Reason: Bronchospasm Last Admin: 05/15/19 14:42 Dose: 3 ml Documented by: Bisacodyl (Dulcolax) 10 mg NM Q2-3DAYS PRN PRN Reason: Constipation Buspirone HCl (Buspar) 10 mg PO BID [facility] Last Admin: 05/16/19 09:10 Dose: 10 mg Documented by: Cyclobenzaprine HCl (Flexeril) 10 mg PO Q6HP PRN PRN Reason: Muscle Spasm Docusate Sodium (Colace) 100 mg PO BID [facility] Last Admin: 05/16/19 09:10 Dose: 100 mg Documented by: Fentanyl (Duragesic) 50 mcg TOPICAL Q72H [facility] Last Admin: 05/15/19 11:05 Dose: 50 mcg Documented by: Furosemide (Lasix) 20 mg PO DAILY [facility] Last Admin: 05/16/19 09:10 Dose: 20 mg Documented by: Hydromorphone HCl (Dilaudid) 0 mg IV Q2HP PRN PRN Reason: PAIN LEVEL > 6 Last Admin: 05/15/19 11:06 Dose: 0.2 mg Documented by: Acetaminophen (Ofirmev) 650 mg in 65 mls @ 130 mls/hr IV Q6HP PRN; Protocol PRN Reason: PAIN/FEVER > 101 Last Admin: 05/15/19 11:06 Dose: 200 mls/hr Documented by: Lactated Ringer's (Lactated Ringers) 1,000 mls @ 100 mls/hr IV .Q10H [facility] Last Admin: 05/15/19 19:15 Dose: 100 mls/hr Documented by: Ketorolac Tromethamine (Toradol) 15 mg IV Q6HP PRN PRN Reason: Pain Stop: 05/16/19 17:21 Last Admin: 05/16/19 03:02 Dose: 15 mg Documented by: Lorazepam (Ativan) 0.5 mg IV BID [facility] Last Admin: 05/16/19 09:10 Dose: 0.5 mg Documented by: Magnesium Hydroxide (Milk Of Magnesia) 30 ml PO BIDP PRN PRN Reason: Constipation Metoprolol Succinate (Toprol Xl) 25 mg PO DAILY [facility] Last Admin: 05/16/19 09:10 Dose: 25 mg Documented by: Metoprolol Tartrate (Lopressor) 5 mg IV Q2HP PRN PRN Reason: Tachyarrhythmias HR>110 Omeprazole (Prilosec) 40 mg PO ACB [facility] Last Admin: 05/16/19 07:13 Dose: 40 mg Documented by: Ondansetron HCl (Zofran) 4 mg IV Q4HP PRN PRN Reason: Nausea And Vomiting Last Admin: 05/15/19 19:15 Dose: 4 mg Documented by: Polyethylene Glycol (Miralax) 17 gm PO DAILYP PRN PRN Reason: Constipation Prochlorperazine (Compazine) 5 mg IV Q4HP PRN PRN Reason: Nausea And Vomiting Senna (Senokot) 2 tab PO [facility] Last Admin: 05/15/19 21:09 Dose: 2 tab Documented by: Sodium Biphosphate/Sodium Phosphate (Fleets Adult) 1 dose NM Q3-4DAYS PRN PRN Reason: Constipation Sodium Chloride (Saline Flush) 10 ml IV Q8 [facility] Last Admin: 05/15/19 21:10 Dose: Not Given Documented by: Tamsulosin HCl (Flomax) 0.4 mg PO [facility] Last Admin: 05/15/19 21:09 Dose: 0.4 mg Documented by: Temazepam (Restoril) 15 mg PO HSP PRN PRN Reason: Insomnia Last Admin: 05/15/19 21:17 Dose: 15 mg Documented by: Throat Lozenges (Cepacol) 1 lozenge PO PRN PRN PRN Reason: Sore Throat Warfarin Sodium (Coumadin Per Pharmacy) 1 order PO UD [facility] Warfarin Sodium (Coumadin) 5 mg PO ONCE@1400 ONE Stop: 05/16/19 14:01 Medical - PN: A/P - Time Spent With Patient Total time spent is greater than 50% in coordination of care (as documented) at patient's floor/unit and/or counseling patient: - Narrative A/P Narrative: A: *Left hip fracture: s/p ORIF (05/14) *Syncope from likely Orthostatic hypotension vs Vasovagal: *COPD (2L NC @home): *ELIAN: *AFib: On warfarin and Toprol *Malignant mesothelioma: On hospice *Paralyzed left hemidiaphragm: *CKD III: *Anemia, chronic: *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 -wound care -Continue home oxygen and as needed nebs -IS -Continue home toprol with PRN IV Lopressor -pt/ot -ppx: Warfarin per pharm
--- NOTE | 2019-05-16 11:45 | Discharge Summary ---
Medical - DS: Prov Patient information: Note initiated : 05/16/19 at 11:41 am Service Date, if different from initiated Date: [] Patient: Mikey Harmon 88 y/o M admitted on 05/13/19 for fall. Chief Complaint: [] Date of admission: 05/13/19 22:30 Discharge date: 05/16/19 Primary care physician: Shameka Neumann Consults: 05/13/19 Consult to Physician [CONS] Stat Comment: Consulting Provider: Chacho Mata Reason For Exam: Physician to Consult Consult to Physician [CONS] Stat Comment: Consulting Provider: Terry Kohler Reason For Exam: Physician to Consult Medical - DS: Meds - Discharge Medications Active and Home Medications: Home Medications Potassium Chloride [Klor-Con M10] 10 meq PO DAILY 10/17/15 [History Confirmed 05/14/19 Last Taken 05/13/19] Albuterol Sulfate [Ventolin] 2 puff INH Q4-6HP PRN #1 inhaler 08/13/16 [Rx Confirmed 07/20/17 Last Taken Unknown] Warfarin [Coumadin] 5 mg PO DAILY 08/13/16 [History Confirmed 05/14/19 Last Taken 05/12/19] Nitroglycerin 0.4 mg SL Q5MIN PRN #25 tab.subl 01/09/17 [Rx Confirmed 07/20/17 Last Taken Unknown] CPAP #1 ea 05/02/17 [Rx Confirmed 07/20/17 Last Taken Unknown] Metoprolol Succinate [Toprol Xl] 25 mg PO DAILY 07/19/17 [History Confirmed 05/14/19 Last Taken 05/13/19] CPAP THERAPY #1 ea 07/20/17 [Rx Confirmed 07/20/17 Last Taken Unknown] gemcitabine 1 gram intravenous solution 2,000 mg INTRAVESIC QWEEK each 07/20/17 [History Confirmed 07/20/17 Last Taken Unknown] Cyclobenzaprine 10 mg PO Q6 05/14/19 [History Confirmed 05/14/19 Last Taken 05/09/19] Fentanyl 1 patch TRANSDERMAL Q72 05/14/19 [History Confirmed 05/15/19 Last Taken 05/11/19] Furosemide [Lasix] 20 mg PO DAILY 05/14/19 [History Confirmed 05/14/19 Last Taken 05/13/19] LORazepam 1 mg PO QPM 05/14/19 [History Confirmed 05/14/19 Last Taken 05/12/19] Omeprazole 40 mg PO QAM 05/14/19 [History Confirmed 05/14/19 Last Taken Unknown] Tamsulosin 0.4 mg DAILY 05/14/19 [History Confirmed 05/14/19 Last Taken 05/12/19] Vitamin C 500 mg PO BID 05/14/19 [History Confirmed 05/14/19 Last Taken 05/13/19] busPIRone 10 mg PO BID 05/14/19 [History Confirmed 05/14/19 Last Taken 05/12/19] Do not take warfarin later today, already taken today of the hospital prior to d/c. Medical - DS: Hosp Hospital Course: Mr. 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 Afterwards he got up to walk away and sounds like he passed out. Patient thinks he might of stumbled on walker but next thing he remembers on the ground people looking at them. He complained at that time of hip pain. History obtained from charts and family as well as patient although he is a bit of a poor historian. Vital signs are stable. He is on warfarin for H fibrillation. CT of the head was done which showed no hemorrhage. CT the pelvis showed a subcapital fracture of the left hip. Dr. Horton was contacted and plans for hip pinning in the morning per discussion with patient and daughter. Patient denies any current complaints including chest pain shortness of breath cough headache. Controlled hip pain. Laboratory work is currently pending 05/14 Poor sleep from pain left hip pain. Lumbar headache as well. Otherwise no overnight events or new complaints. 05/15 Complains of pain when walking. Complains of left ankle pain. Otherwise no new complaints overnight events. 05/16 No overnight events. Dizzy short of breath when he exerts himself but has no complaints. Discharge diagnosis: Left hip fracture syncope from orthostatic hypotension versus vasovagal Secondary discharge diagnosis: COPD obstructive sleep apnea A. fib malignant mesothelioma paralyzed left hemidiaphragm chronic kidney disease stage III chronic anemia pressure ulcer coccyx - Time Spent with Patient Total time spent providing and/or coordinating discharge services: Greater than 30 minutes Medical - DS: Exam - Constitutional Vitals: Vital Signs Temp Pulse Pulse Resp BP BP Pulse Ox 05/16/19 10:00 93 05/16/19 08:00 91 05/16/19 07:44 97.6 F 74 22 143/68 91 05/16/19 03:00 97.5 F 74 22 121/66 93 05/15/19 23:38 97.8 F 76 24 H 129/70 93 05/15/19 18:57 98.3 F 80 24 H 128/70 90 05/15/19 17:56 94 05/15/19 16:00 97.9 F 80 20 119/72 92 05/15/19 14:45 77 22 05/15/19 14:00 93 05/15/19 12:00 97.5 F 77 20 128/69 94 Intake and Output 05/15/19 05/16/19 05/16/19 21:59 05:59 13:59 Intake Total 1480 300 Output Total 250 550 180 Balance 1230 -250 -180 Intake: IV 1000 Lactated Ringers 1,000 ml @ 100 1000 mls/hr IV .Q10H [facility] Rx#: [id number] Oral 480 300 Output: Void Amount 250 550 180 Other: Urine Appearance Clear Urine Color Straw Urine Odor Normal Weight 78.245 kg Medical - DS: Data Labs on day of discharge: Labs from last 24 hours 05/16/19 07:58 PT 16.0 H INR 1.3 H Medical - DS: A/P - Patient/Caregiver Discharge Instructions Activity: as per physical therapy Diet: Regular Diet - Follow up Plan Follow up with: Shameka Neumann ARNP [Primary Care Provider] - Chacho Mata MD [Physician] - Disposition: Xfer SNF Prognosis: Undetermined Rehab Potential: Fair I certify that the patient requires SNF services: Yes Overall status at discharge: patient is progressing back to baseline
[2019-05-16] MEDS ORDERED: WARFARIN 7.5 MG TABLET PO ONE (12:00)
[2019-05-16] MEDS: HYDROcodone/APAP 5/325MG TABLET PO PRN (12:15)
== END 2019-05-16 13:20 | DRG 469 ==
LOC: ED 18:28 → MEDSUR 22:30
PROVIDERS: ADMIT Internal Medicine; ATTEND Internal Medicine